=== PATIENT | female | born 1950 | race Caucasian/White ===

== ENCOUNTER 2019-10-31 14:23 | Inpatient (IN) | payer MEDICARE, BC ==
[~2019-10-31] VITALS: Ht 165.1 cm; Wt 82.1 kg
[2019-10-31] MEDS ORDERED: CYAN100096 PO (14:34)
[2019-10-31] MEDS ORDERED: CHOL400T11 PO (14:34)
[2019-10-31] MEDS ORDERED: RISP2TAB23 PO (14:34)
[2019-10-31] MEDS ORDERED: LEVO125T8 PO (14:34)
[2019-10-31] MEDS ORDERED: ASPI-1169 PO (14:34)
[2019-10-31] MEDS ORDERED: HYDR200T81 PO (14:34)
[2019-10-31] MEDS ORDERED: ESCI10TA PO (14:34)
[2019-10-31] MEDS ORDERED: CARV3.12 PO (14:34)
[2019-10-31] MEDS ORDERED: SIMV-49 PO (14:34)
[2019-10-31] MEDS ORDERED: OMEP40CA13 PO (14:34)
[2019-10-31] MEDS ORDERED: FLUD0.1T PO (14:34)
[2019-10-31] MEDS ORDERED: PRED20TA PO (14:34)
[2019-10-31] MEDS ORDERED: APIX5TAB PO (14:34)
--- NOTE | 2019-10-31 14:42 | NUR ---
BIB RA 69 YEAR OLD FEMALE FROM SNF FOR LOW BLOOD PRESSURE. SBP <90. ALERT AND ORIENTED X1, BREATHING EVEN AND UNLABORED WITH NO DISTRESS NOTED. NOTED WITH BLE EDEMA. SKIN WARM TO TOUCH. WAITING TO BE SEEN BY
[2019-10-31] MEDS ORDERED: RISP0.2515 PO (14:46)
--- NOTE | 2019-10-31 14:47 | NUR ---
SUPERVISOR HEAVY EQUIPMENT FOR FACILITY CALLED LEFT HER NUMBER [phone] FOR ANY OTHER QUESTIONS REGARDING PT
--- NOTE | 2019-10-31 14:51 | NUR ---
PT NOTED WITH BM, CLEANED AND CHANGED
[2019-10-31 15:11] LABS: BASOPHILS # (AUTO) 0.1 /CMM (0.0-0.2); BASOPHILS % (AUTO) 0.6 % (0.0-2.0); HEMATOCRIT 32 % (33-45); HEMOGLOBIN 10.3 g/dL (11.5-14.8); LYMPHOCYTES # (AUTO) 0.7 /CMM (0.8-4.8); LYMPHOCYTES % (AUTO) 5.7 % (20.0-44.0); MEAN CORPUSCULAR HGB CONC 32 g/dl (31.0-36.0); MEAN CORPUSCULAR VOLUME 94 fL (82-100); MONOCYTES # (AUTO) 0.6 /CMM (0.1-1.30); MONOCYTES % (AUTO) 4.5 % (2.0-12.0); NEUTROPHILS # (AUTO) 11.5 /CMM (1.8-8.9); NEUTROPHILS % (AUTO) 88.2 % (43.0-81.0); PLATELET COUNT (AUTO) 223 /CMM (150-450); RED BLOOD CELL COUNT(AUTO) 3.42 MIL/uL (4.0-5.2); WHITE BLOOD COUNT (AUTO) 13.1 K/uL (4.3-11.0)
[2019-10-31 15:16] LABS: ABG BASE EXCESS -2.3 mmol/L; ABG OXYGEN SATURATION 91.6 % (92.0-98.5); ABG PCO2 37.4 mmHg (35.0-45.0); ABG PH 7.393 (7.350-7.450); ABG PO2 69.8 mmHg (75.0-100.0); AaDO2 208.5 mmHg; COHb 0.3 % (0.5-1.5); MetHb 0.4 % (0.0-1.5); SITE, ABG Left Radial
--- NOTE | 2019-10-31 15:19 | NUR ---
urine collected sent to lab
[2019-10-31 15:24] LABS: CALCIUM, SERUM 8.3 mg/dL (8.5-10.1); CARBON DIOXIDE 28 mmol/L (21-32); CHLORIDE 108 mmol/L (98-107); CREATININE 1.4 mg/dL (0.6-1.3); GLUCOSE 135 mg/dL (74-106); POTASSIUM 3.6 mmol/L (3.5-5.1); SODIUM SERUM 144 mmol/L (136-145); UREA NITROGEN, BLOOD 21 mg/dL (7-18)
[2019-10-31 15:30] LABS: ALANINE AMINOTRANSFERASE 41 U/L (12-78); ALBUMIN 2.9 g/dL (3.4-5.0); ALKALINE PHOSPHATASE 74 U/L (46-116); ASPARTATE AMINOTRANSFERASE 25 U/L (15-37); BILIRUBIN,DIRECT 0.2 mg/dL (0.0-0.2); BILIRUBIN,TOTAL 0.8 mg/dL (0.2-1.0); TOTAL PROTEIN, SERUM 5.8 g/dL (6.4-8.2)
[2019-10-31 15:38] LABS: APPEARANCE,URINE Slightly Cloudy (CLEAR); BILIRUBIN,URINE SMALL (NEGATIVE); BLOOD, URINE Trace-intact Ery/uL (NEGATIVE); COLOR,URINE Dark (YELLOW); KETONES,URINE Trace (NEGATIVE); LEUKOCYTE ESTERASE ,URINE Small (NEGATIVE); NITRITE, URINE Negative (NEGATIVE); PROTEIN,URINE 100 mg/dl (NEGATIVE); UGLUCOSE Negative (NEGATIVE); UROBILINOGEN,URINE 0.2 EU/dL (0.2)
--- NOTE | 2019-10-31 15:47 | NUR ---
yousuf from lab called lactic acid of pt 2.5 made aware
[2019-10-31 15:54] LABS: WBC,URINE 81-100 /HPF (0-3)
[2019-10-31 15:55] LABS: BACTERIA,URINE Rare /HPF (None Seen); SQUAMOUS EPITHELIAL CELL,UR Few /HPF (None Seen)
[2019-10-31] MEDS ORDERED: PIPERACILLIN /TAZOBACTAM 3.375 G in IV D5W 50 ML IV ONE (16:00)
[2019-10-31] MEDS ORDERED: IV NS 0.9% 1,000 ML BAG IV ONE (16:00)
--- NOTE | 2019-10-31 16:00 | NUR ---
PAGED [facility].
--- NOTE | 2019-10-31 16:12 | NUR ---
CALLED NURSING SUP FOR TELE BED.
[2019-10-31] MEDS ORDERED: VANCOMYCIN 1 GM in IV D5W 250ml IV ONE (16:30)
--- NOTE | 2019-10-31 17:49 | NUR ---
NURSING SUP GAVE TELE BED 114-1.
--- NOTE | 2019-10-31 17:53 | NUR ---
NURSE WILL CALL BACK FOR REPORT
--- NOTE | 2019-10-31 18:12 | NUR ---
RECEIVED A CALL FROM SPANISH INSTRUCTOR-DELMI [phone], STATING PATIENT IS ALLERGIC TO VANCO WITH MILD RASH RESULT. INFO NOT NOTED FROM MEDICAL RECORD PROVIDED UPON TRANSFER. DR. ELDRIDGE MADE AWARE. PRIMARY NURSE AWARE.
--- NOTE | 2019-10-31 18:44 | NUR ---
pt not noted with vanco reaction after administration
--- NOTE | 2019-10-31 18:45 | NUR ---
pt remains stable
[2019-10-31] MEDS ORDERED: FEE PK DOSING 1 MIN EA MC ONE (19:16)
[2019-10-31] MEDS: IV NS 0.9% 1,000 ML IV PRN (19:27)
[2019-10-31] MEDS ORDERED: ONDANSETRON HCL/PF 4 MG/2 ML VIAL IVP PRN (19:30)
--- NOTE | 2019-10-31 19:30 | NUR ---
RN NOTES, RECEIVED PATIENT IN BED AWAKE A/OX 2 ABLE ANSWER SIMPLE QUESTIONS, ON O2 VIA NC AT 2LPM, BREATHING EVEN AND UNLABORED, NO SOB/ACUTE DISTRESS NOTED AT THIS TIE, NSR IN TELE MONITOR WITH HR IN 80S AT THIS TIME, IV ACCESS IN RFA AND RAC PATENT AND INTACT, WILL F/U WITH MD ORDERS, PATIENT ADMITTED FROM ER AT THE END OF THE PRIOR SHIFT, NOTED PATIENT WITH SACRAL/ PERINEAL AND UNDER BREAST FOLDS REDNESS/EXCORIATION, AFEBRILE, UNDER MEDICAL SERVICES OF DR BIANCHI, WILL CONTINUE TO MONITOR CLOSELY.
--- NOTE | 2019-10-31 19:43 | NUR ---
RN NOTES, INFORMED DR BIANCHI THAT LAB REPORTED CRITICAL FOR LACTIC ACID OF 2.3, AND INITIALLY WAS 2.5, 1,710ML OF IV FLUIDS GIVEN IN ER, AND MD REPLIED WITH NO NEW ORDERED AND CONTINUE JUST THE IVF NS @ 75ML/HR HE ALREADY ORDERED, NOTED AND CARRIED OUT.
[2019-10-31 20:00] VITALS: BP 131/56
[2019-10-31] MEDS: PIPERACILLIN /TAZOBACTAM 3.375 G in IV D5W 100 ML IV SCH (20:36)
[2019-10-31] MEDS: SIMVASTATIN 20 MG TABLET PO SCH (21:05)
[2019-10-31] MEDS: risperiDONE 0.25 MG TABLET PO SCH (21:05)
[2019-11-01] VITALS: BP 138/80
[2019-11-01 04:00] VITALS: BP 125/66
[2019-11-01] MEDS: PIPERACILLIN /TAZOBACTAM 3.375 G in IV D5W 100 ML IV SCH ×3 (04:58→21:29)
[2019-11-01 06:47] LABS: BASOPHILS % (AUTO) 0.3 % (0.0-2.0); EOSINOPHILS % (AUTO) 0.6 % (0.0-6.0); HEMATOCRIT 27 % (33-45); HEMOGLOBIN 8.7 g/dL (11.5-14.8); LYMPHOCYTES # (AUTO) 0.9 /CMM (0.8-4.8); LYMPHOCYTES % (AUTO) 5.9 % (20.0-44.0); MEAN CORPUSCULAR HGB CONC 32 g/dl (31.0-36.0); MEAN CORPUSCULAR VOLUME 93 fL (82-100); MONOCYTES % (AUTO) 6.3 % (2.0-12.0); NEUTROPHILS # (AUTO) 13.2 /CMM (1.8-8.9); NEUTROPHILS % (AUTO) 86.9 % (43.0-81.0); PLATELET COUNT (AUTO) 168 /CMM (150-450); RED BLOOD CELL COUNT(AUTO) 2.91 MIL/uL (4.0-5.2); WHITE BLOOD COUNT (AUTO) 15.2 K/uL (4.3-11.0)
--- NOTE | 2019-11-01 06:50 | NUR ---
RN NOTES, NO SIGNIFICANT CHANGE IN CONDITION DURING THE NIGHT, WILL ENDORSED CONTINUITY OF CARE TO ONCOMING NURSE.
[2019-11-01 06:58] LABS: CALCIUM, SERUM 7.1 mg/dL (8.5-10.1); CREATININE 0.9 mg/dL (0.6-1.3); POTASSIUM 3.8 mmol/L (3.5-5.1)
--- NOTE | 2019-11-01 07:15 | NUR ---
ETL INFORMATICA ARCHITECT OPENING NOTES: RECEIVED PT IN BED RESTING, ON 2L/MIN NC. NO RESPIRATORY DISTRESS OR SOB NOTED. BREATHING EVEN AND UNLABORED. HAS VELEZ CATHETER IN PLACE, DRAINING. PT HAS 2 IV ACCESSES ON THE RIGHT FOREARM (INNER AND OUTER) W/ 0.9% NS RUNNING AT 75ML/HR. SAFETY MEASURES IN PLACE, CALL LIGHT W/IN REACH. WILL CONTINUE TO MONITOR.
[2019-11-01] MEDS: LEVOTHYROXINE SODIUM 125 MCG TABLET PO SCH (07:30)
[2019-11-01] MEDS ORDERED: PANTOPRAZOLE 40 MG TABLET.DR PO SCH (07:30)
[2019-11-01 08:00] VITALS: BP 119/57
[2019-11-01] MEDS: ESCITALOPRAM OXALATE (10 MG) 10 MG TABLET PO SCH (09:44)
[2019-11-01] MEDS: FLUDROCORTISONE 0.1 MG TABLET PO SCH (09:44)
[2019-11-01] MEDS: PANTOPRAZOLE 40 MG VIAL IV SCH (09:44)
[2019-11-01] MEDS: CARVEDILOL 3.125 MG TABLET PO SCH ×2 (09:44→17:00)
[2019-11-01] MEDS: ASPIRIN 81 MG TAB.CHEW PO SCH (09:44)
[2019-11-01] MEDS: HYDROXYCHLOROQUINE 200 MG TABLET PO SCH (09:44)
[2019-11-01] MEDS: predniSONE 20 MG TABLET PO SCH (09:44)
[2019-11-01] MEDS: CHOLECALCIFEROL (VITAMIN D 3) 400 UNIT TABLET PO SCH (09:44)
[2019-11-01] MEDS: CYANOCOBALAMIN 500 MCG TABLET PO SCH (09:44)
[2019-11-01] MEDS: APIXABAN 5 MG TABLET PO SCH ×2 (09:53→16:58)
[2019-11-01] MEDS: IV NS 0.9% 1,000 ML IV PRN (09:58)
--- NOTE | 2019-11-01 11:52 | NUR ---
TELE1/RN ROUNDS - DR. BIANCHI UPDATED PT'S CONDITION TOLD MD PT HAS LOW BP 91/60. RECEIVED VERBAL ORDER TO GIVE PT BOLUS NS 250ML. ORDER NOTED AND CARRIED.
[2019-11-01 12:00] VITALS: BP 91/60
[2019-11-01] MEDS ORDERED: IV NS 0.9% 250 ML IV ONE (12:00)
--- NOTE | 2019-11-01 12:38 | NUR ---
WOUND CARE CONSULT: SKIN ASSESSMENT NOT DONE YET BY WOUND CARE NURSE DUE TO PT EATING AT THIS TIME. REVIEWED ADMISSION PHOTOS AND NURSING DOCUMENTATION WHICH SHOW RASHES AND REDNESS TO BREASTFOLDS AND GROIN FOLDS, PRESENT ON ADMISSION. RECOMMENDATIONS MADE FOR SKIN CARE AND PROTECTION. DISCUSSED WITH NURSING STAFF. WILL SEE PT FOR SKIN ASSESSMENT AT LATER TIME. MD IN AGREEMENT WITH PLAN OF CARE. CURRENT RENAN SCORE IS 15.
[2019-11-01 16:00] VITALS: BP 93/59
[2019-11-01] MEDS: CLOTRIMAZOLE 1% 15 GM TUBE TP SCH (16:55)
[2019-11-01] MEDS: VANCOMYCIN 1.25 GM in IV D5W 250 ML IV SCH (17:42)
--- NOTE | 2019-11-01 19:40 | NUR ---
BROACH OPERATOR OPENING NOTES: RECEIVED PT IN BED RESTING, ON 2L/MIN NC. NO RESPIRATORY DISTRESS OR SOB NOTED. BREATHING EVEN AND UNLABORED. HAS VELEZ CATHETER IN PLACE, DRAINING. PT RIGHT FOREARM X2 (INNER AND OUTER) W/ 0.9% NS RUNNING AT 75ML/HR. SAFETY MEASURES IN PLACE, CALL LIGHT W/IN REACH. WILL CONTINUE TO MONITOR.
--- NOTE | 2019-11-01 19:50 | NUR ---
TELE/RN CLOSING NOTES: PT AWAKE IN BED A&O X2-3. NO RESPIRATORY DISTRESS NOTED DURING SHIFT. ON TELE MONITOR W/ SR. ALL MEDICATIONS GIVEN PRESCRIBED. ADMINISTERED NS 250ML BOLUS FOR LOW BP DURING SHIFT. SAFETY MEASURES IN PLACE. CALL LIGHT WITHIN REACH. ENDORSED TO NIGHT RN FOR BUD.
[2019-11-01 20:00] VITALS: BP 100/57
[2019-11-02] VITALS (7 sets, daily range): BP systolic 102–124; BP diastolic 51–65
[2019-11-02] MEDS: risperiDONE 0.25 MG TABLET PO SCH ×2 (00:19→21:06)
[2019-11-02] MEDS: SIMVASTATIN 20 MG TABLET PO SCH ×2 (00:19→21:06)
[2019-11-02] MEDS: PIPERACILLIN /TAZOBACTAM 3.375 G in IV D5W 100 ML IV SCH ×3 (05:16→21:06)
--- NOTE | 2019-11-02 07:05 | NUR ---
FIRE COORDINATOR CLOSING NOTES: PATIENT IN BED RESTING, ON 2L/MIN NC. NO RESPIRATORY DISTRESS OR SOB NOTED. BREATHING EVEN AND UNLABORED. HAS VELEZ CATHETER IN PLACE, DRAINING. PATIENT HAS RIGHT FOREARM X2 (INNER AND OUTER) W/ 0.9% NS RUNNING AT 75ML/HR. SAFETY MEASURES IN PLACE, CALL LIGHT W/IN REACH. WILL ENDORSE THE PATIENT TO AM RN FOR BUD.
[2019-11-02 07:07] LABS: BASOPHILS % (AUTO) 0.4 % (0.0-2.0); EOSINOPHILS % (AUTO) 2.3 % (0.0-6.0); HEMATOCRIT 25 % (33-45); HEMOGLOBIN 8.1 g/dL (11.5-14.8); LYMPHOCYTES # (AUTO) 1.1 /CMM (0.8-4.8); LYMPHOCYTES % (AUTO) 11.5 % (20.0-44.0); MEAN CORPUSCULAR HGB CONC 33 g/dl (31.0-36.0); MEAN CORPUSCULAR VOLUME 94 fL (82-100); MONOCYTES % (AUTO) 10.7 % (2.0-12.0); NEUTROPHILS # (AUTO) 7.3 /CMM (1.8-8.9); NEUTROPHILS % (AUTO) 75.1 % (43.0-81.0); PLATELET COUNT (AUTO) 164 /CMM (150-450); RED BLOOD CELL COUNT(AUTO) 2.66 MIL/uL (4.0-5.2); WHITE BLOOD COUNT (AUTO) 9.7 K/uL (4.3-11.0)
--- NOTE | 2019-11-02 07:10 | NUR ---
RN INITIAL NOTE PATIENT IS ASLEEP, BUT EASILY AROSUABLE TO NAME AND TOUCH. ALERT AND ORIENTED X3. ON TELE MONITOR. HAS A VELEZ DRAINING WELL. HAS A LEFT FA AND RIGHT WITH NS AT 75 ML/HR. NO COMPLAINS OF ANY SOB NOR PAIN AT THIS TIME. BED LOCKED AND IN LOWEST POSITION. CALL LIGHT WITHIN REACH. WILL CONTINUE TO MONITOR
--- NOTE | 2019-11-02 07:35 | NUR ---
WOUND CARE CONSULT: PT SEEN FOR SKIN ASSESSMENT AND NOTED TO HAVE RASH/REDNESS TO BILATERAL BREASTFOLDS AND GROIN FOLDS, PRESENT ON ADMISSION. PT IS INCONTINENT. SOME PEELING SKIN NOTED TO HER BACK. RECOMMENDATIONS MADE FOR SKIN PROTECTION AND SKIN CARE. DISCUSSED WITH NURSING STAFF. WILL SEE PRN. TONEY IN AGREEMENT WITH PLAN OF CARE. Addendum: 11/02/19 at 0736 by RONI GEORGES WNDNU Amended: Links added.
[2019-11-02 07:45] LABS: CALCIUM, SERUM 7.2 mg/dL (8.5-10.1); MAGNESIUM 1.8 mg/dL (1.8-2.4); POTASSIUM 3.5 mmol/L (3.5-5.1)
[2019-11-02] MEDS: LEVOTHYROXINE SODIUM 125 MCG TABLET PO SCH (08:31)
[2019-11-02] MEDS: ESCITALOPRAM OXALATE (10 MG) 10 MG TABLET PO SCH (08:37)
[2019-11-02] MEDS: predniSONE 20 MG TABLET PO SCH (08:38)
[2019-11-02] MEDS: FLUDROCORTISONE 0.1 MG TABLET PO SCH (08:38)
[2019-11-02] MEDS: CARVEDILOL 3.125 MG TABLET PO SCH ×2 (08:38→16:38)
[2019-11-02] MEDS: ASPIRIN 81 MG TAB.CHEW PO SCH (08:38)
[2019-11-02] MEDS: CYANOCOBALAMIN 500 MCG TABLET PO SCH (08:39)
[2019-11-02] MEDS: APIXABAN 5 MG TABLET PO SCH ×2 (08:39→16:36)
[2019-11-02] MEDS: PANTOPRAZOLE 40 MG VIAL IV SCH (08:40)
[2019-11-02] MEDS: CHOLECALCIFEROL (VITAMIN D 3) 400 UNIT TABLET PO SCH (08:40)
[2019-11-02] MEDS: CLOTRIMAZOLE 1% 15 GM TUBE TP SCH ×2 (08:41→16:39)
[2019-11-02] MEDS: HYDROXYCHLOROQUINE 200 MG TABLET PO SCH (08:42)
[2019-11-02] MEDS: VANCOMYCIN 1.25 GM in IV D5W 250 ML IV SCH (16:39)
--- NOTE | 2019-11-02 18:55 | NUR ---
RN CLOSING NOTE PT IN BED, CALL LIGHT WITHIN REACH, ALL MEDS GIVEN, NO C/O OF SOB. WILL ENDORSE TO LANDFILL GRADER.
--- NOTE | 2019-11-02 19:00 | NUR ---
ARCHITECTURAL DESIGNER NOTE RECEIVED PT IN STABLE CONDITION A/O X3, CURRENTLY WATCHING TV. NO SIGNS OF SOB OR DISTRESS, NO C/O PAIN OR N/V. NOTED WITH RAC #18 INTACT WITH IV ATB INFUSING. TELE MONITOR: SR 76. VELEZ IN PLACE WITH CLEAR URINE DRAINING. ALL CURRENT NEEDS ATTENDED TO. BED LOW, LOCKED, UPPER RAILS UP, AND CALL LIGHT WITHIN REACH. WILL CONT. TO MONITOR.
[2019-11-03] VITALS (7 sets, daily range): BP systolic 111–141; BP diastolic 58–76
[2019-11-03] MEDS: PIPERACILLIN /TAZOBACTAM 3.375 G in IV D5W 100 ML IV SCH ×2 (04:14→12:12)
[2019-11-03] MEDS: IV NS 0.9% 1,000 ML IV PRN (04:17)
--- NOTE | 2019-11-03 06:14 | NUR ---
DISTRICT PLANT SUPERVISOR NOTE PT REMAINS IN STABLE CONDITION A/O X3, CURRENTLY RESTING IN BED. NO SIGNS OF SOB OR DISTRESS, NO C/O PAIN OR N/V. NOTED WITH RAC #18 INTACT WITH IV ATB INFUSING. TELE MONITOR: SR 80. VELEZ IN PLACE WITH CLEAR URINE DRAINING. ALL CURRENT NEEDS ATTENDED TO. BED LOW, LOCKED, UPPER RAILS UP, AND CALL LIGHT WITHIN REACH. WILL CONT. TO MONITOR AND ENDORSE TO NEXT SHIFT FOR BUD.
[2019-11-03 06:36] LABS: BASOPHILS # (AUTO) 0.1 /CMM (0.0-0.2); EOSINOPHILS % (AUTO) 2.9 % (0.0-6.0); HEMATOCRIT 25 % (33-45); HEMOGLOBIN 8.2 g/dL (11.5-14.8); MEAN CORPUSCULAR HGB CONC 33 g/dl (31.0-36.0); MEAN CORPUSCULAR VOLUME 93 fL (82-100); MONOCYTES # (AUTO) 0.9 /CMM (0.1-1.30); MONOCYTES % (AUTO) 10.7 % (2.0-12.0); NEUTROPHILS # (AUTO) 5.8 /CMM (1.8-8.9); NEUTROPHILS % (AUTO) 72.4 % (43.0-81.0); PLATELET COUNT (AUTO) 159 /CMM (150-450); RED BLOOD CELL COUNT(AUTO) 2.67 MIL/uL (4.0-5.2)
[2019-11-03 06:45] LABS: CALCIUM, SERUM 8.1 mg/dL (8.5-10.1); CREATININE 0.9 mg/dL (0.6-1.3); POTASSIUM 3.3 mmol/L (3.5-5.1)
--- NOTE | 2019-11-03 08:00 | NUR ---
RN NOTE: PATIENT RECEIVED ALERT AWAKE ORIENTED X 3. ON ROOM AIR, NO BREATHING DISTRESS NOTED. DENIES CHEST PAIN & DISCOMFORT. SAFETY MEASURES OBSERVED. ENCOURAGE PATIENT TO USE CALL LIGHT FOR ASSISTANCE. CALL LIGHT WITH IN REACH. CONTINUE TO MONITOR.
[2019-11-03] MEDS: CHOLECALCIFEROL (VITAMIN D 3) 400 UNIT TABLET PO SCH (09:22)
[2019-11-03] MEDS: CYANOCOBALAMIN 500 MCG TABLET PO SCH (09:22)
[2019-11-03] MEDS: ESCITALOPRAM OXALATE (10 MG) 10 MG TABLET PO SCH (09:22)
[2019-11-03] MEDS: HYDROXYCHLOROQUINE 200 MG TABLET PO SCH (09:23)
[2019-11-03] MEDS: CARVEDILOL 3.125 MG TABLET PO SCH ×2 (09:23→17:18)
[2019-11-03] MEDS: LEVOTHYROXINE SODIUM 125 MCG TABLET PO SCH (09:23)
[2019-11-03] MEDS: PANTOPRAZOLE 40 MG VIAL IV SCH (09:23)
[2019-11-03] MEDS: ASPIRIN 81 MG TAB.CHEW PO SCH (09:23)
[2019-11-03] MEDS: predniSONE 20 MG TABLET PO SCH (09:23)
[2019-11-03] MEDS: FLUDROCORTISONE 0.1 MG TABLET PO SCH (09:23)
[2019-11-03] MEDS: APIXABAN 5 MG TABLET PO SCH ×2 (09:25→17:19)
[2019-11-03] MEDS: CLOTRIMAZOLE 1% 15 GM TUBE TP SCH ×2 (09:26→17:20)
--- NOTE | 2019-11-03 10:00 | NUR ---
RN NOTE; SPOKE WITH DR. BIANCHI AT BEDSIDE, REGARDING VANCOMYCIN ALLERGY DOCUMENTATION & ADMINISTRATION OF VANCOMYCIN. PER DOCTOR, HE IS AWARE. CONTINUE ORDERED/AND MONITOR. WILL REVIEW PATIENT CHART.
[2019-11-03] MEDS ORDERED: VANCOMYCIN 1 GM in IV D5W 250 ML IV SCH (11:00)
[2019-11-03] MEDS ORDERED: POTASSIUM CHLORIDE 20 MEQ TAB.PRT.SR PO SCH (11:30)
[2019-11-03] MEDS ORDERED: POTASSIUM CHLORIDE 10 MEQ TABLET.SA PO ONE (12:30)
[2019-11-03] MEDS: CEFTRIAXONE 1 G in IV D5W 50 ML IV SCH (13:42)
[2019-11-03] MEDS: AZITHROMYCIN 250 MG TABLET PO SCH (13:42)
--- NOTE | 2019-11-03 18:29 | NUR ---
RN NOTES: PATIENT REMAINS ALERT AWAKE ORIENTED. NO SIGNIFICANT CHANGES NOTED DURING SHIFT. CONTINUE WITH ATB THERAPY ORDERED. PLAN TO DISCHARGE TOMORROW PER DR. BIANCHI. CONTINUE WITH PLAN OF CARE.
--- NOTE | 2019-11-03 20:11 | NUR ---
TELE1/RN RECEIVE PATIENT IN BED AWAKE, ORIENTED X1, COMFORTABLE, NO C/O PAIN, NO DISTRESS NOTED, FALL PRECAUTIONS, CALL LIGHT IN REACH. WILL MONITOR.
--- NOTE | 2019-11-03 22:38 | NUR ---
PAU/RN COUGHING NOTED, CALLED DR. BIANCHI, LEFT MESSAGE.
[2019-11-03] MEDS: SIMVASTATIN 20 MG TABLET PO SCH (22:45)
[2019-11-03] MEDS: risperiDONE 0.25 MG TABLET PO SCH (22:46)
--- NOTE | 2019-11-03 23:24 | NUR ---
PAU/RN NO CALL BACK YET FROM DR. BIANCHI. MADE A F/U CALL, LEFT MESSAGE.
[2019-11-04] VITALS (8 sets, daily range): BP systolic 95–158; BP diastolic 54–79
--- NOTE | 2019-11-04 02:21 | NUR ---
MS/RN PATIENT IS SLEEPING AT THIS TIME, APPEAR COMFORTABLE, NO SIGNS OF DISTRESS NOTED, CALL LIGHT IN REACH. WILL CONTINUE TO MONITOR.
--- NOTE | 2019-11-04 06:16 | NUR ---
PAU/RN PATIENT IS STILL SLEEPING AT THIS TIME, APPEAR COMFORTABLE, NO SIGNS OF DISTRESS NOTED, CALL LIGHT IN REACH. ALL NEEDS ATTENDED AT THIS TIME, WILL CONTINUE TO MONITOR.
[2019-11-04] MEDS: LEVOTHYROXINE SODIUM 125 MCG TABLET PO SCH (07:30)
[2019-11-04 07:34] LABS: CALCIUM, SERUM 8.4 mg/dL (8.5-10.1); CREATININE 1.1 mg/dL (0.6-1.3); POTASSIUM 3.3 mmol/L (3.5-5.1)
[2019-11-04] MEDS: PANTOPRAZOLE 40 MG VIAL IV SCH (09:27)
[2019-11-04] MEDS: ASPIRIN 81 MG TAB.CHEW PO SCH (09:27)
[2019-11-04] MEDS: CARVEDILOL 3.125 MG TABLET PO SCH ×2 (09:28→17:00)
[2019-11-04] MEDS: APIXABAN 5 MG TABLET PO SCH ×2 (09:29→17:47)
[2019-11-04] MEDS: FLUDROCORTISONE 0.1 MG TABLET PO SCH (09:29)
[2019-11-04] MEDS: ESCITALOPRAM OXALATE (10 MG) 10 MG TABLET PO SCH (09:29)
[2019-11-04] MEDS: HYDROXYCHLOROQUINE 200 MG TABLET PO SCH (09:29)
[2019-11-04] MEDS: CYANOCOBALAMIN 500 MCG TABLET PO SCH (09:30)
[2019-11-04] MEDS: CHOLECALCIFEROL (VITAMIN D 3) 400 UNIT TABLET PO SCH (09:30)
[2019-11-04] MEDS: predniSONE 20 MG TABLET PO SCH (09:30)
[2019-11-04] MEDS: CLOTRIMAZOLE 1% 15 GM TUBE TP SCH ×2 (09:30→17:51)
[2019-11-04] MEDS: AZITHROMYCIN 250 MG TABLET PO SCH (11:59)
[2019-11-04] MEDS: CEFTRIAXONE 1 G in IV D5W 50 ML IV SCH (11:59)
[2019-11-04] MEDS ORDERED: POTASSIUM CHLORIDE 20 MEQ TAB.PRT.SR PO SCH (12:00)
[2019-11-04] MEDS ORDERED: PROMETHAZINE HCL SYRUP 6.25 MG/5 ML UDC PO SCH (13:30)
[2019-11-04] MEDS: methylPREDNISolone SOD SUCC 40 MG/ML VIAL IV SCH ×2 (14:42→17:46)
--- NOTE | 2019-11-04 14:46 | NUR ---
alert, oriented, appropriate, non-productive cough noticeably , PHENERGAN 5cc po ordered. PT attempted to walk with her, claimed " too tired to walk today"
[2019-11-04] MEDS: PROMETHAZINE HCL SYRUP 6.25 MG/5 ML UDC PO PRN (15:46)
[2019-11-04] MEDS: SIMVASTATIN 20 MG TABLET PO SCH (21:23)
[2019-11-04] MEDS: risperiDONE 0.25 MG TABLET PO SCH (21:23)
[2019-11-05] VITALS (7 sets, daily range): BP systolic 110–141; BP diastolic 58–73
[2019-11-05 07:02] LABS: CALCIUM, SERUM 8.8 mg/dL (8.5-10.1); CREATININE 1.2 mg/dL (0.6-1.3); POTASSIUM 3.9 mmol/L (3.5-5.1)
--- NOTE | 2019-11-05 07:15 | NUR ---
MS RN OPENING NOTE RECEIVED PATIENT IN BED SLEEPING COMFORTABLY. PATIENT IN NO ACUTE DISTRESS. NO SOB NOTED. PATIENT BREATHING IS EVEN AND UNLABORED. IV PATENT AND INTACT. BED ALARM IS ON. SAFETY PRECAUTIONS IN PLACE. PATIENT BED IS LOCKED AND IN LOWEST POSITION. CALL LIGHT WITHIN REACH. WILL CONTINUE TO MONITOR.
[2019-11-05] MEDS: FLUDROCORTISONE 0.1 MG TABLET PO SCH (08:08)
[2019-11-05] MEDS: HYDROXYCHLOROQUINE 200 MG TABLET PO SCH (08:08)
[2019-11-05] MEDS: CLOTRIMAZOLE 1% 15 GM TUBE TP SCH ×2 (08:08→16:35)
[2019-11-05] MEDS: APIXABAN 5 MG TABLET PO SCH ×2 (08:09→16:31)
[2019-11-05] MEDS: CYANOCOBALAMIN 500 MCG TABLET PO SCH (08:10)
[2019-11-05] MEDS: ASPIRIN 81 MG TAB.CHEW PO SCH (08:10)
[2019-11-05] MEDS: predniSONE 20 MG TABLET PO SCH (08:10)
[2019-11-05] MEDS: CHOLECALCIFEROL (VITAMIN D 3) 400 UNIT TABLET PO SCH (08:11)
[2019-11-05] MEDS: CARVEDILOL 3.125 MG TABLET PO SCH ×2 (08:11→16:32)
[2019-11-05] MEDS: LEVOTHYROXINE SODIUM 125 MCG TABLET PO SCH (08:12)
[2019-11-05] MEDS: ESCITALOPRAM OXALATE (10 MG) 10 MG TABLET PO SCH (08:12)
[2019-11-05] MEDS: PROMETHAZINE HCL SYRUP 6.25 MG/5 ML UDC PO PRN (08:13)
[2019-11-05] MEDS: methylPREDNISolone SOD SUCC 40 MG/ML VIAL IV SCH ×3 (08:13→16:32)
[2019-11-05] MEDS: PANTOPRAZOLE 40 MG VIAL IV SCH (08:13)
--- NOTE | 2019-11-05 10:24 | NUR ---
MS RN NOTE WOUND CARE PERFORMED ORDERED.
[2019-11-05] MEDS: AZITHROMYCIN 250 MG TABLET PO SCH (12:27)
[2019-11-05] MEDS: CEFTRIAXONE 1 G in IV D5W 50 ML IV SCH (12:29)
[2019-11-05] MEDS: OSELTAMIVIR PHOSPHATE 75 MG CAPSULE PO SCH (16:32)
[2019-11-05] MEDS: METRONIDAZOLE 500MG/ NS 100ML 500 MG in PREMIX 1 EA IV SCH (16:44)
--- NOTE | 2019-11-05 17:40 | NUR ---
MS RN NOTE RT HORACIO MADE AWARE OF BREATHING TREATMENTS, PER HORACIO HE NOTIFIED RT WHOM HAS THIS PATIENT FOR BREATHING TREATMENTS. PATIENT IN NO ACUTE DISTRESS. PATIENT BREATHING IS EVEN AND UNLABORED.
[2019-11-05] MEDS: CEFEPIME 2 GM in IV D5W 100 ML IV SCH (17:51)
--- NOTE | 2019-11-05 18:20 | NUR ---
MS RN CLOSING NOTE PATIENT IN BED RESTING COMFORTABLY. PATIENT IN NO ACUTE DISTRESS. NO SOB NOTED. PATIENT BREATHING IS EVEN AND UNLABORED. IV PATENT AND INTACT. BED ALARM IS ON. ISOLATION PRECAUTIONS IN PLACE. SAFETY PRECAUTIONS IN PLACE. PATIENT KEPT CLEAN, DRY AND COMFORTABLE THROUGHOUT SHIFT. NEEDS AND CONCERNS ADDRESSED. PATIENT BED IS LOCKED AND IN LOWEST POSITION. CALL LIGHT WITHIN REACH. WILL ENDORSE CARE TO PM SHIFT FOR BUD.
[2019-11-05] MEDS: IPRATROPIUM NEB FS 0.5 MG/2.5 ML AMPUL.NEB NEB SCH (19:25)
[2019-11-05] MEDS: ALBUTEROL FS 2.5 MG/0.5 ML VIAL.NEB NEB SCH (19:25)
--- NOTE | 2019-11-05 19:48 | NUR ---
RN NOTES RECEIVED PATIENT IN BED RESTING COMFORTABLY. NO ACUTE RESPIRATORY DISTRESS. NO SOB NOTED. PATIENT BREATHING IS EVEN AND UNLABORED. IV PATENT AND INTACT. BED ALARM IS ON. ISOLATION PRECAUTIONS MAINTAINED, SAFETY PRECAUTIONS IN PLACE. PATIENT KEPT CLEAN, DRY AND COMFORTABLE, ALL NEEDS ATTENDED, SAFETY MEASURES IN PLACED, PATIENT BED IS LOCKED AND IN LOWEST POSITION. CALL LIGHT WITHIN EASY REACH. WILL CONTINUE TO MONITOR ACCORDINGLY.
[2019-11-05] MEDS: SIMVASTATIN 20 MG TABLET PO SCH (22:12)
[2019-11-05] MEDS: risperiDONE 0.25 MG TABLET PO SCH (22:13)
[2019-11-06] MEDS: METRONIDAZOLE 500MG/ NS 100ML 500 MG in PREMIX 1 EA IV SCH ×4 (00:52→23:40)
[2019-11-06] MEDS: CEFEPIME 2 GM in IV D5W 100 ML IV SCH ×2 (04:08→16:34)
[2019-11-06 05:24] VITALS: BP 132/64
--- NOTE | 2019-11-06 06:26 | NUR ---
RN NOTES ALL NEEDS ATTENDED AND MET, ABLE TO REST AND SLEPT AT INTERVALS, PATIENT IN BED RESTING COMFORTABLY. NO ACUTE RESPIRATORY DISTRESS. NO SOB NOTED. PATIENT BREATHING IS EVEN AND UNLABORED. IV PATENT AND INTACT. BED ALARM IS ON. ISOLATION PRECAUTIONS MAINTAINED, SAFETY PRECAUTIONS IN PLACE. PATIENT KEPT CLEAN, DRY AND COMFORTABLE, ALL NEEDS ATTENDED, SAFETY MEASURES IN PLACED, PATIENT BED IS LOCKED AND IN LOWEST POSITION. CALL LIGHT WITHIN EASY REACH. WILL ENDORSE TO AM NURSE FOR CONTINUITY OF CARE.
[2019-11-06 06:54] LABS: BASOPHILS % (AUTO) 0.1 % (0.0-2.0); HEMATOCRIT 24 % (33-45); HEMOGLOBIN 7.9 g/dL (11.5-14.8); LYMPHOCYTES # (AUTO) 0.4 /CMM (0.8-4.8); LYMPHOCYTES % (AUTO) 7.3 % (20.0-44.0); MEAN CORPUSCULAR HGB CONC 33 g/dl (31.0-36.0); MEAN CORPUSCULAR VOLUME 92 fL (82-100); MONOCYTES # (AUTO) 0.6 /CMM (0.1-1.30); MONOCYTES % (AUTO) 10.3 % (2.0-12.0); NEUTROPHILS # (AUTO) 4.8 /CMM (1.8-8.9); NEUTROPHILS % (AUTO) 82.3 % (43.0-81.0); PLATELET COUNT (AUTO) 205 /CMM (150-450); WHITE BLOOD COUNT (AUTO) 5.9 K/uL (4.3-11.0)
[2019-11-06 07:31] LABS: CALCIUM, SERUM 8.1 mg/dL (8.5-10.1); CREATININE 1.1 mg/dL (0.6-1.3); POTASSIUM 3.6 mmol/L (3.5-5.1)
[2019-11-06] MEDS: ALBUTEROL FS 2.5 MG/0.5 ML VIAL.NEB NEB SCH ×3 (07:35→20:02)
[2019-11-06] MEDS: IPRATROPIUM NEB FS 0.5 MG/2.5 ML AMPUL.NEB NEB SCH ×3 (07:35→20:02)
[2019-11-06 08:00] VITALS: BP 135/67
[2019-11-06] MEDS: PANTOPRAZOLE 40 MG VIAL IV SCH (08:13)
[2019-11-06] MEDS: methylPREDNISolone SOD SUCC 40 MG/ML VIAL IV SCH ×3 (08:13→16:34)
[2019-11-06] MEDS: HYDROXYCHLOROQUINE 200 MG TABLET PO SCH (08:14)
[2019-11-06] MEDS: OSELTAMIVIR PHOSPHATE 75 MG CAPSULE PO SCH ×2 (08:14→16:34)
[2019-11-06] MEDS: ASPIRIN 81 MG TAB.CHEW PO SCH (08:14)
[2019-11-06] MEDS: CYANOCOBALAMIN 500 MCG TABLET PO SCH (08:14)
[2019-11-06] MEDS: CHOLECALCIFEROL (VITAMIN D 3) 400 UNIT TABLET PO SCH (08:14)
[2019-11-06] MEDS: predniSONE 20 MG TABLET PO SCH (08:14)
[2019-11-06] MEDS: CARVEDILOL 3.125 MG TABLET PO SCH ×2 (08:15→16:35)
[2019-11-06] MEDS: LEVOTHYROXINE SODIUM 125 MCG TABLET PO SCH (08:15)
[2019-11-06] MEDS: APIXABAN 5 MG TABLET PO SCH ×2 (08:16→16:39)
[2019-11-06] MEDS: FLUDROCORTISONE 0.1 MG TABLET PO SCH (08:17)
[2019-11-06] MEDS: ESCITALOPRAM OXALATE (10 MG) 10 MG TABLET PO SCH (08:17)
[2019-11-06] MEDS: CLOTRIMAZOLE 1% 15 GM TUBE TP SCH ×2 (08:18→16:42)
--- NOTE | 2019-11-06 09:06 | NUR ---
ALERT, ORIENTED, APPROPRIATE, C/O PAIM ON SARAH BETH, WHERE AV FISTULA PLACEMENT ON 11/04, ON PO [place] 5/325MG GIVEN WITH RELIEF
[2019-11-06 13:00] VITALS: BP 135/67
[2019-11-06 16:00] VITALS: BP 105/57
--- NOTE | 2019-11-06 18:30 | NUR ---
MS RN NOTES PATIENT IN BED, AWAKE, ALERT AND ORIENTED X 2-3. BREATHING EVEN AND UNLABORED ON ROOM AIR. SHOWS NO SIGNS OF ACUTE RESPIRATORY DISTRESS, NO ACUTE PAIN. IV ON R FA 22G SL. SHOWS NO SIGNS OF INFILTRATION, NO REDNESS. ITS CLEAN DRY AND INTACT. VELEZ CATHETER IS INTACT, FLOWING CLEAR YELLOW URINE. SAFETY PRECAUTIONS IN PLACE. BED IN LOWEST POSITION, LOCKED, AND CALL LIGHT KEPT WITHIN REACH. WILL CONTINUE TO MONITOR.
[2019-11-06] MEDS: PROMETHAZINE HCL SYRUP 6.25 MG/5 ML UDC PO PRN (18:46)
[2019-11-06 21:00] VITALS: BP 147/84
[2019-11-06] MEDS: ACETAMINOPHEN 325 MG TABLET PO PRN (21:08)
[2019-11-06] MEDS: SIMVASTATIN 20 MG TABLET PO SCH (21:08)
[2019-11-06] MEDS: risperiDONE 0.25 MG TABLET PO SCH (21:08)
[2019-11-07] MEDS: CEFEPIME 2 GM in IV D5W 100 ML IV SCH ×2 (05:00→16:30)
--- NOTE | 2019-11-07 06:36 | NUR ---
MS RN NOTES PATIENT IN BED, ASLEEP, ALERT AND ORIENTED X 2-3. BREATHING EVEN AND UNLABORED ON ROOM AIR. SHOWS NO SIGNS OF ACUTE RESPIRATORY DISTRESS, NO ACUTE PAIN. IV ON R FA 22G SL. SHOWS NO SIGNS OF INFILTRATION, NO REDNESS. ITS CLEAN DRY AND INTACT. VELEZ CATHETER IS INTACT, FLOWING CLEAR YELLOW URINE. ALL DUE MEDICATIONS GIVEN. SAFETY PRECAUTIONS IN PLACE. BED IN LOWEST POSITION, LOCKED, AND CALL LIGHT KEPT WITHIN REACH. WILL ENDORSE TO ONCOMING NURSE.
--- NOTE | 2019-11-07 07:40 | NUR ---
MS RN NOTES RECEIVED PATIENT IN BED RESTING COMFORTABLY IN MODERATE HIGH BACK REST, ALERT AND ORIENTED X 2-3. NO SIGNS OF DISTRESS NOTED AT THIS TIME. IV ACCESS ON RFA #22, SL. CLEAN DRY,PATENT AND INTACT. VELEZ CATHETER IS INTACT, FLOWING CLEAR YELLOW URINE. SAFETY PRECAUTIONS IN PLACE. BED IN LOWEST POSITION, LOCKED, AND CALL LIGHT KEPT WITHIN REACH. WILL CONTINUE TO MONITOR.
[2019-11-07 07:49] LABS: CALCIUM, SERUM 8.2 mg/dL (8.5-10.1); CREATININE 1.4 mg/dL (0.6-1.3); POTASSIUM 3.5 mmol/L (3.5-5.1)
[2019-11-07] MEDS: IPRATROPIUM NEB FS 0.5 MG/2.5 ML AMPUL.NEB NEB SCH ×3 (07:49→19:48)
[2019-11-07] MEDS: ALBUTEROL FS 2.5 MG/0.5 ML VIAL.NEB NEB SCH ×3 (07:49→19:48)
[2019-11-07] MEDS: METRONIDAZOLE 500MG/ NS 100ML 500 MG in PREMIX 1 EA IV SCH ×2 (07:56→15:31)
[2019-11-07 08:00] VITALS: BP 163/113
[2019-11-07] MEDS: FLUDROCORTISONE 0.1 MG TABLET PO SCH (08:35)
[2019-11-07] MEDS: PANTOPRAZOLE 40 MG VIAL IV SCH (08:35)
[2019-11-07] MEDS: ASPIRIN 81 MG TAB.CHEW PO SCH (08:35)
[2019-11-07] MEDS: CHOLECALCIFEROL (VITAMIN D 3) 400 UNIT TABLET PO SCH (08:35)
[2019-11-07] MEDS: OSELTAMIVIR PHOSPHATE 75 MG CAPSULE PO SCH ×2 (08:36→16:15)
[2019-11-07] MEDS: CYANOCOBALAMIN 500 MCG TABLET PO SCH (08:36)
[2019-11-07] MEDS: ESCITALOPRAM OXALATE (10 MG) 10 MG TABLET PO SCH (08:36)
[2019-11-07] MEDS: methylPREDNISolone SOD SUCC 40 MG/ML VIAL IV SCH ×3 (08:36→16:14)
[2019-11-07] MEDS: LEVOTHYROXINE SODIUM 125 MCG TABLET PO SCH (08:36)
[2019-11-07] MEDS: HYDROXYCHLOROQUINE 200 MG TABLET PO SCH (08:36)
[2019-11-07] MEDS: predniSONE 20 MG TABLET PO SCH (08:37)
[2019-11-07] MEDS: CARVEDILOL 3.125 MG TABLET PO SCH ×2 (08:37→16:17)
[2019-11-07] MEDS: APIXABAN 5 MG TABLET PO SCH ×2 (08:40→16:20)
[2019-11-07] MEDS: CLOTRIMAZOLE 1% 15 GM TUBE TP SCH ×2 (08:58→16:46)
[2019-11-07 09:44] LABS: BASOPHILS % (AUTO) 0.1 % (0.0-2.0); HEMATOCRIT 27 % (33-45); HEMOGLOBIN 8.6 g/dL (11.5-14.8); LYMPHOCYTES # (AUTO) 0.5 /CMM (0.8-4.8); LYMPHOCYTES % (AUTO) 7.3 % (20.0-44.0); MEAN CORPUSCULAR HGB CONC 32 g/dl (31.0-36.0); MEAN CORPUSCULAR VOLUME 92 fL (82-100); MONOCYTES # (AUTO) 0.6 /CMM (0.1-1.30); MONOCYTES % (AUTO) 9.9 % (2.0-12.0); NEUTROPHILS # (AUTO) 5.3 /CMM (1.8-8.9); NEUTROPHILS % (AUTO) 82.7 % (43.0-81.0); PLATELET COUNT (AUTO) 211 /CMM (150-450); RED BLOOD CELL COUNT(AUTO) 2.91 MIL/uL (4.0-5.2); WHITE BLOOD COUNT (AUTO) 6.4 K/uL (4.3-11.0)
[2019-11-07 10:00] VITALS: BP 163/113
[2019-11-07 12:00] VITALS: BP 116/76
[2019-11-07 16:00] VITALS: BP 140/71
--- NOTE | 2019-11-07 18:34 | NUR ---
MS RN NOTES PATIENT IN BED RESTING COMFORTABLY IN MODERATE HIGH BACK REST, ALERT AND ORIENTED X 2-3. NO SIGNS OF DISTRESS NOTED THROUGHOUT THE SHIFT. IV ACCESS ON RFA #22, SL. CLEAN DRY,PATENT AND INTACT. VELEZ CATHETER IS INTACT, FLOWING CLEAR YELLOW URINE. ISOLATION PRECAUTIO MAINTAINED, SAFETY PRECAUTIONS IN PLACE. BED IN LOWEST POSITION, LOCKED, AND CALL LIGHT KEPT WITHIN REACH. WILL ENDORSE TO ALUMINUM BOAT INSPECTOR NURSE FOR BUD.
--- NOTE | 2019-11-07 19:05 | NUR ---
RN MS OPENING NOTES RECEIVED PATIENT IN BED AWAKE ALERT AND ORIENTED X3 RESPIRATIONS EVEN AND UNLABORED WITH EQUAL RISE AND FALL OF CHEST, NOTED WITH NON PRODUCTIVE COUGH AT THIS TIME, VELEZ CATHETER INTACT AND PATENT, DRAINING, SAFETY PRECAUTIONS IN PLACE, ON CONTACT ISOLATION AND RENDERED, IV SITE TO RIGHT FA #22 G INTACT AND PATENT, NO REDNESS, NO INFILTRATION PRESENT, SL.ORIENTED TO STAFF AND CALL LIGHT AND KEPT WITHIN REACH ,LOW BED AND LOCKED, ALL NEEDS ATTENDED AT THIS TIME, DENIES PAIN WILL CONTINUE TO MONITOR.
[2019-11-07 20:00] VITALS: BP 135/78
[2019-11-07 22:00] VITALS: BP 135/78
[2019-11-07] MEDS: SIMVASTATIN 20 MG TABLET PO SCH (22:04)
[2019-11-07] MEDS: risperiDONE 0.25 MG TABLET PO SCH (22:04)
[2019-11-08 04:00] VITALS: BP 149/78
[2019-11-08] MEDS: CEFEPIME 2 GM in IV D5W 100 ML IV SCH ×2 (04:53→17:30)
--- NOTE | 2019-11-08 05:16 | NUR ---
RN MS NOTES PATIENT REFUSED LAB DRAW AT THIS TIME X3 , DESPITE EDUCATION, PER HUMAN RESOURCES DEPARTMENT SUPERVISOR SOMEONE WILL COME BACK TO TRY AGAIN AT A LATER TIME
--- NOTE | 2019-11-08 06:32 | NUR ---
RN MS CLOSING NOTES PATIENT IN BED AWAKE ALERT AND ORIENTED X3 RESPIRATIONS EVEN AND UNLABORED WITH EQUAL RISE AND FALL OF CHEST, NOTED WITH NON PRODUCTIVE COUGH AT THIS TIME, ON 02 2 L VIA NC, VELEZ CATHETER INTACT AND PATENT, DRAINING TEA COLOR, SAFETY PRECAUTIONS IN PLACE, ON CONTACT ISOLATION AND RENDERED, IV SITE TO RIGHT FA #22 G INTACT AND PATENT, NO REDNESS, NO INFILTRATION PRESENT, SL. MEDICATIONS GIVEN ORDERED NO ADVERSE REACTIONS PRESENT.CALL LIGHT KEPT WITHIN REACH ,LOW BED AND LOCKED, ALL NEEDS ATTENDED AT THIS TIME, DENIES PAIN WILL CONTINUE TO MONITOR AND ENDORSE TO NEXT SHIFT.
--- NOTE | 2019-11-08 07:25 | NUR ---
MS RN OPENING NOTES RECEIVED PATIENT RESTING IN BED. A/O X3. RESPIRATIONS ARE EVEN AND UNLABORED, CURRENTLY ON ROOM AIR TOLERATING WELL, SATURATING WELL. PATIENT HAS A VELEZ CATHETER IN PLACE, DRAINING TEA COLORED URINE. DRAINING WELL WITH 1100ML OUTPUT DURING THE NIGHT. PATIENT IS ON A MECHANICAL SOFT DIET BUT IS ABLE TO TAKE PILLS WHOLE. IV ON RIGHT FOREARM #22, INTACT, PATENT, AND FLUSHED WELL. NO SIGNS AND SYMPTOMS OF INFECTION NOTED. SAFETY MAINTAINED, CALL LIGHT WITHIN REACH. WILL CONTINUE TO MONITOR.
[2019-11-08] MEDS: ALBUTEROL FS 2.5 MG/0.5 ML VIAL.NEB NEB SCH ×3 (07:33→20:12)
[2019-11-08] MEDS: IPRATROPIUM NEB FS 0.5 MG/2.5 ML AMPUL.NEB NEB SCH ×3 (07:33→20:12)
--- NOTE | 2019-11-08 07:38 | NUR ---
PT REFUSED MORNING LABS, LAB WILL COME AND TRY AGAIN AT 9AM.
[2019-11-08 08:00] VITALS: BP 153/78
[2019-11-08] MEDS: methylPREDNISolone SOD SUCC 40 MG/ML VIAL IV SCH ×3 (08:37→16:04)
[2019-11-08] MEDS: HYDROXYCHLOROQUINE 200 MG TABLET PO SCH (08:37)
[2019-11-08] MEDS: CYANOCOBALAMIN 500 MCG TABLET PO SCH (08:38)
[2019-11-08] MEDS: ESCITALOPRAM OXALATE (10 MG) 10 MG TABLET PO SCH (08:38)
[2019-11-08] MEDS: ASPIRIN 81 MG TAB.CHEW PO SCH (08:38)
[2019-11-08] MEDS: FLUDROCORTISONE 0.1 MG TABLET PO SCH (08:38)
[2019-11-08] MEDS: LEVOTHYROXINE SODIUM 125 MCG TABLET PO SCH (08:38)
[2019-11-08] MEDS: CHOLECALCIFEROL (VITAMIN D 3) 400 UNIT TABLET PO SCH (08:38)
[2019-11-08] MEDS: CARVEDILOL 3.125 MG TABLET PO SCH ×2 (08:39→16:05)
[2019-11-08] MEDS: OSELTAMIVIR PHOSPHATE 75 MG CAPSULE PO SCH ×2 (08:40→16:05)
[2019-11-08] MEDS: METRONIDAZOLE 500MG/ NS 100ML 500 MG in PREMIX 1 EA IV SCH ×4 (08:40→16:09)
[2019-11-08] MEDS: predniSONE 20 MG TABLET PO SCH (08:40)
[2019-11-08] MEDS: PANTOPRAZOLE 40 MG VIAL IV SCH (08:40)
[2019-11-08] MEDS: APIXABAN 5 MG TABLET PO SCH ×2 (08:42→16:06)
[2019-11-08] MEDS: CLOTRIMAZOLE 1% 15 GM TUBE TP SCH ×2 (09:06→16:21)
[2019-11-08 10:00] VITALS: BP 153/78
[2019-11-08] MEDS: ACETAMINOPHEN 325 MG TABLET PO PRN (11:17)
[2019-11-08 16:00] VITALS: BP 133/73
--- NOTE | 2019-11-08 19:20 | NUR ---
MS/RN NOTES RECEIVED PT. SITTING UP IN BED. PT. IS AWAKE, ALERT AND ORIENTED X3. BREATHING EVEN AND UNLABORED ON 2LPM O2 VIA NC. NO SOB, RESPIRATORY DISTRESS OR COMPLAINTS OF PAIN NOTED AT THIS TIME. PT. WITH RIGHT FOREARM 22 GAUGE IV SALINE LOCK PRESENT, PATENT AND INTACT. PT. WITH VELEZ CATHETER PRESENT, PATENT AND INTACT. SAFETY, ISOLATION AND ASPIRATION PRECAUTIONS IMPLEMENTED AND IN PLACE. BED LOCKED AND IN LOWEST POSITION, SIDE RAILS UP X3, BED ALARM ON, CALL LIGHT WITHIN REACH, WILL CONTINUE TO MONITOR.
--- NOTE | 2019-11-08 19:29 | NUR ---
RETAIL PRODUCT DEMO SPECIALIST CLOSING NOTES PATIENT IN STABLE CONDITION. ALL PATIENT NEEDS MET. PATIENT IS AWAKE IN BED, ACCEPTED LAB BLOOD DRAW, BEING DRAWN RN. VELEZ CATHETER IN PLACE, DRAINING TEA COLORED URINE. IV INTACT, PATENT AND FLUSHED WELL. NO ACUTE CHANGES TO PATIENT CONDITION DURING MY SHIFT. ENDORSED TO WELT DRAWER NURSE TO CONTINUE CARE.
[2019-11-08 20:00] VITALS: BP 157/81
[2019-11-08 20:09] LABS: CALCIUM, SERUM 7.9 mg/dL (8.5-10.1); CREATININE 1.2 mg/dL (0.6-1.3); POTASSIUM 3.6 mmol/L (3.5-5.1)
[2019-11-08] MEDS: risperiDONE 0.25 MG TABLET PO SCH (21:59)
[2019-11-08] MEDS: SIMVASTATIN 20 MG TABLET PO SCH (21:59)
[2019-11-09] MEDS: METRONIDAZOLE 500MG/ NS 100ML 500 MG in PREMIX 1 EA IV SCH ×2 (00:39→08:51)
[2019-11-09 04:00] VITALS: BP 148/83
[2019-11-09] MEDS: CEFEPIME 2 GM in IV D5W 100 ML IV SCH ×2 (04:59→16:49)
--- NOTE | 2019-11-09 06:40 | NUR ---
MS/RN NOTES PT. IS LYING IN BED RESTING. BREATHING EVEN AND UNLABORED ON 2LPM O2 VIA NC. NO SOB, RESPIRATORY DISTRESS OR COMPLAINTS OF PAIN NOTED AT THIS TIME. PT. WITH RIGHT FOREARM 22 GAUGE IV SALINE LOCK PRESENT, PATENT AND INTACT. PT. WITH VELEZ CATHETER PRESENT, PATENT AND INTACT. SAFETY, ISOLATION AND ASPIRATION PRECAUTIONS IMPLEMENTED AND IN PLACE. ALL PT. NEEDS MET. PT. OFFLOADED, TURNED AND REPOSITIONED Q2H AND NEEDED. BED LOCKED AND IN LOWEST POSITION, SIDE RAILS UP X3, BED ALARM ON, CALL LIGHT WITHIN REACH, WILL ENDORSE TO DAYSHIFT NURSE FOR CONTINUITY OF CARE.
[2019-11-09] MEDS: IPRATROPIUM NEB FS 0.5 MG/2.5 ML AMPUL.NEB NEB SCH ×3 (07:17→20:05)
[2019-11-09] MEDS: ALBUTEROL FS 2.5 MG/0.5 ML VIAL.NEB NEB SCH ×3 (07:17→20:06)
--- NOTE | 2019-11-09 07:30 | NUR ---
RN OPENING NOTES PT. IS LYING IN BED RESTING. BREATHING EVEN AND UNLABORED ON 2LPM O2 VIA NC. NO SOB, RESPIRATORY DISTRESS OR COMPLAINTS OF PAIN NOTED AT THIS TIME. PT. WITH RIGHT FOREARM 22 GAUGE IV SALINE LOCK PRESENT, PATENT AND INTACT. PT. WITH VELEZ CATHETER PRESENT, PATENT AND DRAINING TO GRAVITY. SAFETY, ISOLATION AND ASPIRATION PRECAUTIONS IMPLEMENTED AND IN PLACE.HOB ELEVATED. BED LOCKED AND IN LOWEST POSITION, SIDE RAILS UP X3, BED ALARM ON, CALL LIGHT WITHIN REACH, WILL CONTINUE TO MONITOR.
[2019-11-09 08:00] VITALS: BP 160/88
--- NOTE | 2019-11-09 08:20 | NUR ---
PT ROLLED OVER IN BED AND REMOVED IV IN R FOREARM. PT WANTS TO GO WITH PHYSICAL THERAPY PRIOR TO REINSERTING IV.
[2019-11-09] MEDS: PANTOPRAZOLE 40 MG VIAL IV SCH (08:51)
[2019-11-09] MEDS: predniSONE 20 MG TABLET PO SCH (08:51)
[2019-11-09] MEDS: LEVOTHYROXINE SODIUM 125 MCG TABLET PO SCH (08:51)
[2019-11-09] MEDS: CYANOCOBALAMIN 500 MCG TABLET PO SCH (08:51)
[2019-11-09] MEDS: methylPREDNISolone SOD SUCC 40 MG/ML VIAL IV SCH ×3 (08:51→16:51)
[2019-11-09] MEDS: FLUDROCORTISONE 0.1 MG TABLET PO SCH (08:52)
[2019-11-09] MEDS: ASPIRIN 81 MG TAB.CHEW PO SCH (08:52)
[2019-11-09] MEDS: ESCITALOPRAM OXALATE (10 MG) 10 MG TABLET PO SCH (08:52)
[2019-11-09] MEDS: CHOLECALCIFEROL (VITAMIN D 3) 400 UNIT TABLET PO SCH (08:52)
[2019-11-09] MEDS: HYDROXYCHLOROQUINE 200 MG TABLET PO SCH (08:52)
[2019-11-09] MEDS: CARVEDILOL 3.125 MG TABLET PO SCH ×2 (08:53→16:51)
[2019-11-09] MEDS: APIXABAN 5 MG TABLET PO SCH ×2 (08:54→16:50)
[2019-11-09] MEDS: OSELTAMIVIR PHOSPHATE 75 MG CAPSULE PO SCH ×2 (08:54→16:50)
[2019-11-09] MEDS: CLOTRIMAZOLE 1% 15 GM TUBE TP SCH ×2 (08:55→16:52)
--- NOTE | 2019-11-09 10:00 | NUR ---
NEW IV INSERTED 22 GAUGE R HAND
--- NOTE | 2019-11-09 14:06 | NUR ---
REPORT GIVEN TO BRENDAN DEGROOT FOR BUD.
--- NOTE | 2019-11-09 14:15 | NUR ---
RN OPENING NOTES RECEIVED PATIENT FROM BRENDAN ARCE TO CONTINUE CARE. PATIENT IN STABLE CONDITION, NO ACUTE CHANGES SINCE MORNING. NEW IV WAS PLACED, INTACT PATENT AND FLUSHED WELL. ALL SCHEDULED MEDICATIONS WERE ALREADY ADMINISTERED, NEXT MED DUE AT 1700. PATIENT SAFETY IS MAINTAINED, CALL LIGHT WITHIN REACH, WILL CONTINUE TO MONITOR.
[2019-11-09 16:00] VITALS: BP 166/89
[2019-11-09] MEDS: METRONIDAZOLE 500 MG TABLET PO SCH (16:50)
[2019-11-09] MEDS ORDERED: INFLUENZA VACCINE 2019-20 0.5 ML DISP.SYRIN IM ONE (18:30)
--- NOTE | 2019-11-09 18:59 | NUR ---
RN CLOSING NOTES PATIENT IN STABLE CONDITION. NO ACUTE CHANGES TO PATIENT CONDITION DURING MY SHIFT. DID AN INFLUENZA ASSESSMENT ON PATIENT PER PHARMACY REQUEST, WILL ADMINISTER INFLUENZA VACCINE BEFORE DISCHARGE. ENDORSED TO REHABILITATION TECH NURSE THAT THE PATIENT WANTS TO RECEIVE BOTH THE PNEUMONIA AND INFLUENZA VACCINE. DISCHARGE ORDERS ARE IN, PATIENT WILL BE GOING HOME TOMORROW. SAFETY MAINTAINED, CALL LIGHT WITHIN REACH, WILL ENDORSE TO REHABILITATION TECH NURSE TO CONTINUE MONITORING.
--- NOTE | 2019-11-09 19:20 | NUR ---
RN OPENING NOTES: PATIENT IN BED, AWAKE, AND VERBALLY RESPONSIVE. NO RESPIRATORY DISTRESS. ON O2 AT 2 LPM VIA NC, TOLERATING WELL. NO C/O PAIN AT THIS TIME. (R) HAND G22 C/D/I. FLUSHING WELL. ON TKO. SAFETY PRECAUTIONS IMPLEMENTED. SIDE RAILS X 2 UP. BED LOCKED, ALARM ON, AND IN LOW POSITION. HOB ELEVATED. CALL LIGHT PLACED WITHIN REACH. WILL CONT. TO MONITOR.
[2019-11-09 20:00] VITALS: BP 158/82
[2019-11-09] MEDS: SIMVASTATIN 20 MG TABLET PO SCH (22:02)
[2019-11-09] MEDS: risperiDONE 0.25 MG TABLET PO SCH (22:02)
[2019-11-10] MEDS: METRONIDAZOLE 500 MG TABLET PO SCH ×3 (01:45→16:24)
[2019-11-10 04:00] VITALS: BP 145/91
[2019-11-10] MEDS: CEFEPIME 2 GM in IV D5W 100 ML IV SCH ×2 (04:24→16:21)
--- NOTE | 2019-11-10 07:15 | NUR ---
RN CLOSING NOTES: PATIENT IN BED, ASLEEP, BUT EASILY AROUSABLE. NO RESPIRATORY DISTRESS. ON O2 AT 2 LPM VIA NC, TOLERATING WELL. NO C/O PAIN AT THIS TIME. REMAINS ON DROPLET PRECAUTION. (R) HAND G22 C/D/I. FLUSHING WELL. SAFETY PRECAUTIONS IMPLEMENTED. SIDE RAILS X 2 UP. BED LOCKED, ALARM ON, AND IN LOW POSITION. HOB ELEVATED. CALL LIGHT PLACED WITHIN REACH. PATIENT TO BE DISCHARGED TODAY ORDERED BY MD. ENDORSED TO AM SHIFT NURSE FOR CONTINUITY OF CARE.
--- NOTE | 2019-11-10 07:30 | NUR ---
RN MS NOTES PT IN BED, AWAKE, ALERT AND ORIENTED, NO COMPLAINT OF PAIN OR SHORTNESS OF BREATH, CALL LIGHT WITHIN REACH, TOLERATING CURRENT DIET, KEPT WARM AND COMFORTABLE IN BED, ISOLATION PRECAUTIONS OBSERVED.
[2019-11-10] MEDS: IPRATROPIUM NEB FS 0.5 MG/2.5 ML AMPUL.NEB NEB SCH ×2 (07:35→13:30)
[2019-11-10] MEDS: ALBUTEROL FS 2.5 MG/0.5 ML VIAL.NEB NEB SCH ×2 (07:35→13:30)
[2019-11-10 08:00] VITALS: BP 173/84
[2019-11-10] MEDS: PANTOPRAZOLE 40 MG VIAL IV SCH (08:37)
[2019-11-10] MEDS: CHOLECALCIFEROL (VITAMIN D 3) 400 UNIT TABLET PO SCH (08:37)
[2019-11-10] MEDS: LEVOTHYROXINE SODIUM 125 MCG TABLET PO SCH (08:37)
[2019-11-10] MEDS: methylPREDNISolone SOD SUCC 40 MG/ML VIAL IV SCH ×3 (08:37→16:24)
[2019-11-10] MEDS: predniSONE 20 MG TABLET PO SCH (08:38)
[2019-11-10] MEDS: OSELTAMIVIR PHOSPHATE 75 MG CAPSULE PO SCH ×2 (08:38→16:24)
[2019-11-10] MEDS: CARVEDILOL 3.125 MG TABLET PO SCH ×2 (08:38→16:28)
[2019-11-10] MEDS: ESCITALOPRAM OXALATE (10 MG) 10 MG TABLET PO SCH (08:38)
[2019-11-10] MEDS: CYANOCOBALAMIN 500 MCG TABLET PO SCH (08:38)
[2019-11-10] MEDS: FLUDROCORTISONE 0.1 MG TABLET PO SCH (08:38)
[2019-11-10] MEDS: ASPIRIN 81 MG TAB.CHEW PO SCH (08:39)
[2019-11-10] MEDS: HYDROXYCHLOROQUINE 200 MG TABLET PO SCH (08:41)
[2019-11-10] MEDS: APIXABAN 5 MG TABLET PO SCH ×2 (08:41→16:25)
[2019-11-10] MEDS: CLOTRIMAZOLE 1% 15 GM TUBE TP SCH ×2 (08:53→16:29)
[2019-11-10 12:00] VITALS: BP 133/67
--- NOTE | 2019-11-10 13:00 | NUR ---
RN MS NOTES PT IN BED, AWAKE, ALERT AND ORIENTED, DENIES PAIN, NO SOB, PLAN FOR DISCHARGE TODAY, PT INFORMED, AWAITING BALE TIE MACHINE OPERATOR CONFIRMATION OF D/C PLAN, DUE MEDS GIVEN ORDERED, NEEDS ATTENDED.
[2019-11-10 16:28] VITALS: BP 158/95
--- NOTE | 2019-11-10 18:45 | NUR ---
RN MS NOTES PT IN BED, AWAKE, ALERT AND ORIENTED, DENIES PAIN, NOT IN DISTRESS, DISCHARGE ORDER GIVEN BY DR. BIANCHI, PT AND FAMILY INFORMED, PT TO GO BACK TO [facility]ARE, ADMINSTRATOR KIMBERLY INFORMED, SKIN CHECK DONE, BELONGINGS ACCOUNTED FOR, FLU VACCINE GIVEN ORDERED, TOLERATED WELL, PICKED UP BY 2 AMBULANCE PERSONNEL, LEFT VIA GUERNEY IN STABLE CONDITION.
== END 2019-11-10 18:40 | disposition home or self-care (01) | DRG 871 ==
LOC: ER 14:28 → TELE1 17:50 → MEDSG1 11-04 08:26
PROVIDERS: ADMIT Internal Medicine; ATTEND Legal Medicine
DX: A41.9 Sepsis, unspecified organism (principal); N17.0 Acute kidney failure with tubular necrosis; J69.0 Pneumonitis due to inhalation of food and vomit; J10.08 Influenza due to other identified influenza virus with other specified pneumonia; G92 Toxic encephalopathy; E87.2 Acidosis; N39.0 Urinary tract infection, site not specified; E27.40 Unspecified adrenocortical insufficiency; J44.1 Chronic obstructive pulmonary disease with (acute) exacerbation; J44.0 Chronic obstructive pulmonary disease with (acute) lower respiratory infection; E03.9 Hypothyroidism, unspecified; E78.5 Hyperlipidemia, unspecified; F03.90 Unspecified dementia, unspecified severity, without behavioral disturbance, psychotic disturbance, mood disturbance, and anxiety; Z79.01 Long term (current) use of anticoagulants; Z99.81 Dependence on supplemental oxygen; E87.6 Hypokalemia; Z86.711 Personal history of pulmonary embolism; F32.9 Major depressive disorder, single episode, unspecified; E86.1 Hypovolemia; I50.9 Heart failure, unspecified; I11.0 Hypertensive heart disease with heart failure; Z79.82 Long term (current) use of aspirin; M32.9 Systemic lupus erythematosus, unspecified
CPT/HCPCS: 36415; 36600; 71045-TC; 80048-TC; 80076-TC; 80202-TC; 81000-TC; 83605-TC; 83735-TC; 84484-TC; 85025-TC; 85730-TC; 87040-TC; 87081-TC; 87086-TC; 94760-TC; 97110-TC; 97112-TC; 97116-TC; 97530-TC; A4216; C9113; G0378; J0692; J0696; J2543; J2920; J3370; J3490; J7030; J7040; J7050; J7060; Q0169; Q2036

== ENCOUNTER 2019-12-06 10:27 | Inpatient (IN) | payer MEDICARE, BC ==
[~2019-12-06] VITALS: Ht 165.1 cm; Wt 74.8 kg
[~2019-12-06 10:27] MED LIST: APIX5TAB PO; ASPI-1169 PO; CARV3.12 PO; CHOL400T11 PO; CYAN100096 PO; ESCI10TA PO; FLUD0.1T PO; HYDR200T81 PO; LEVO125T8 PO; OMEP40CA13 PO; PRED20TA PO; RISP0.2515 PO; SIMV-49 PO
--- NOTE | 2019-12-06 10:40 | NUR ---
NAHED BISHOP 89 From [facility] facility "she was eating-sudden decline in mentation was appropriate when we arrived. Hypotensive [id number]". On 02 @ 2lpm via NC. connected to the monitor and pulse ox. kept comfortable, willl continue to monitor accordingly.
[2019-12-06] MEDS ORDERED: ONDANSETRON HCL/PF 4 MG/2 ML VIAL IVP ONE (11:00)
[2019-12-06] MEDS ORDERED: methylPREDNISolone SOD SUCC 125 MG/2ML VIAL IV ONE (11:00)
[2019-12-06] MEDS ORDERED: IV NS 0.9% 1,000 ML BAG IV ONE ×2 (11:00)
[2019-12-06] MEDS ORDERED: methylPREDNISolone SOD SUCC 125 MG/2ML VIAL ONE (11:03)
[2019-12-06] MEDS ORDERED: ONDANSETRON HCL/PF 4 MG/2 ML VIAL ONE (11:03)
[2019-12-06] MEDS ORDERED: NITR100C PO (11:12)
[2019-12-06] MEDS ORDERED: MIRT15TA PO (11:12)
[2019-12-06] MEDS ORDERED: SIMV40TA2 PO (11:12)
[2019-12-06] MEDS ORDERED: BUPR150T5 PO (11:12)
[2019-12-06 11:31] LABS: BASOPHILS # (AUTO) 0.1 /CMM (0.0-0.2); BASOPHILS % (AUTO) 0.5 % (0.0-2.0); HEMATOCRIT 37 % (33-45); HEMOGLOBIN 11.5 g/dL (11.5-14.8); LYMPHOCYTES # (AUTO) 2.1 /CMM (0.8-4.8); LYMPHOCYTES % (AUTO) 18.2 % (20.0-44.0); MEAN CORPUSCULAR HGB CONC 31 g/dl (31.0-36.0); MEAN CORPUSCULAR VOLUME 94 fL (82-100); MONOCYTES # (AUTO) 1.1 /CMM (0.1-1.30); MONOCYTES % (AUTO) 9.8 % (2.0-12.0); NEUTROPHILS % (AUTO) 70.5 % (43.0-81.0); PLATELET COUNT (AUTO) 240 /CMM (150-450); RED BLOOD CELL COUNT(AUTO) 3.94 MIL/uL (4.0-5.2); WHITE BLOOD COUNT (AUTO) 11.4 K/uL (4.3-11.0)
[2019-12-06 11:40] LABS: CALCIUM, SERUM 8.4 mg/dL (8.5-10.1); CARBON DIOXIDE 25 mmol/L (21-32); CHLORIDE 110 mmol/L (98-107); CREATININE 1.4 mg/dL (0.6-1.3); GLUCOSE 100 mg/dL (74-106); POTASSIUM 3.3 mmol/L (3.5-5.1); SODIUM SERUM 144 mmol/L (136-145); UREA NITROGEN, BLOOD 18 mg/dL (7-18)
[2019-12-06 11:51] LABS: APPEARANCE,URINE SL CLOUDY (CLEAR); BILIRUBIN,URINE NEGATIVE (NEGATIVE); BLOOD, URINE NEGATIVE Ery/uL (NEGATIVE); COLOR,URINE YELLOW (YELLOW); KETONES,URINE NEGATIVE (NEGATIVE); LEUKOCYTE ESTERASE ,URINE SMALL (NEGATIVE); NITRITE, URINE NEGATIVE (NEGATIVE); PROTEIN,URINE TRACE mg/dl (NEGATIVE); UGLUCOSE NEGATIVE (NEGATIVE); UROBILINOGEN,URINE 0.2 EU/dL (0.2)
--- NOTE | 2019-12-06 11:52 | NUR ---
wheeled patient via gurney to ct
[2019-12-06 11:55] LABS: SERUM AMMONIA < 10 umol/L (11-32)
[2019-12-06 11:56] LABS: BACTERIA,URINE None seen /HPF (None Seen); RBC,URINE 0-2 /HPF (0-2); SQUAMOUS EPITHELIAL CELL,UR Many /HPF (None Seen)
[2019-12-06 11:58] LABS: ALANINE AMINOTRANSFERASE 24 U/L (12-78); ALBUMIN 2.7 g/dL (3.4-5.0); ALCOHOL, BLOOD < 3 mg/dL (0-0); ALKALINE PHOSPHATASE 49 U/L (46-116); ASPARTATE AMINOTRANSFERASE 18 U/L (15-37); BILIRUBIN,DIRECT 0.2 mg/dL (0.0-0.2); BILIRUBIN,TOTAL 0.8 mg/dL (0.2-1.0); TOTAL PROTEIN, SERUM 5.9 g/dL (6.4-8.2)
--- NOTE | 2019-12-06 11:58 | NUR ---
DR. MEDINA SPOKE WITH DR. BIANCHI, AND ACCEPTED.
[2019-12-06 11:59] LABS: THYROID STIMULATING HORMONE 5.015 uIU/mL (0.358-3.74)
--- NOTE | 2019-12-06 12:18 | NUR ---
patient came back from ct
[2019-12-06] MEDS ORDERED: ACETAMINOPHEN 325 MG TABLET PO PRN (12:30)
[2019-12-06] MEDS ORDERED: HYDROCODONE/APAP 5/325MG 1 EACH TABLET PO PRN (12:30)
[2019-12-06] MEDS ORDERED: MAG HYDROX/AL HYDROX/SIMETH 30 ML UDC PO PRN (12:30)
[2019-12-06] MEDS ORDERED: CHOLECALCIFEROL (VITAMIN D 3) 400 UNIT TABLET PO SCH (12:30)
[2019-12-06] MEDS ORDERED: ONDANSETRON HCL/PF 4 MG/2 ML VIAL IVP PRN (12:30)
[2019-12-06] MEDS ORDERED: HYDROCODONE/APAP 10/325MG 1 EA TABLET PO PRN (12:30)
[2019-12-06] MEDS ORDERED: ZOLPIDEM TARTRATE 5 MG TABLET PO PRN (12:30)
[2019-12-06] MEDS ORDERED: MAGNESIUM HYDROXIDE 30 ML UDC PO PRN (12:30)
[2019-12-06] MEDS ORDERED: Z GUARD REMEDY 2 OZ OINT TP PRN (12:30)
--- NOTE | 2019-12-06 12:56 | NUR ---
report given to Jaspreet CARDONA for silvio.
--- NOTE | 2019-12-06 14:00 | NUR ---
wheeled patient via gurney accompanied by RN and EMT in no distress. Jaspreet RN at bedside to assume care.
--- NOTE | 2019-12-06 14:23 | NUR ---
PAU RN Notes Received patient in bed from emergency department. VSS. Patient refused skin assessment and pictures. Offered to have a female RN do wound and skin photos, and client refused. Patient is alert and oriented x3. Admitted for syncope episode. Per career developer at bedside Sumit, BP was low 60/40 at board and care facility she was staying at. Per report from ED 500mL bolus given at scene by EMS for BP of 97/53. Caregiver reported PMH of HLD, HTN, Depression, Pneumonia 2/2 to infulenza infection, hypothyroidism, lupus, DVT, bipolar disorder, and a PMH of alcoholism and confabulation syndrome. Lung sounds are clear with 02 at 97 on 4L nasal canula, RR 14. oracle solutions architect is SR 80s. Voids and uses a diaper. No musculoskeletal issues brought up on assessment. Integ is intact except for mild blanchable sacral redness and redness of the skin folds in groin.
[2019-12-06 16:00] VITALS: BP 148/67
[2019-12-06] MEDS: APIXABAN 5 MG TABLET PO SCH (19:01)
[2019-12-06] MEDS: buPROPion SR 150 MG TABLET.ER PO SCH (19:02)
[2019-12-06] MEDS: CARVEDILOL 3.125 MG TABLET PO SCH (19:03)
[2019-12-06] MEDS: DOCUSATE SODIUM 100 MG CAPSULE PO SCH (19:04)
--- NOTE | 2019-12-06 19:20 | NUR ---
PAU RN OPENING NOTE RECEIVED PATIENT IN BED, WATCHING TV. BREATHING EVEN AND NON LABORED. ABLE TO MAKE NEEDS KNOWN. A&O X3. IN NO APPARENT DISTRESS NOTED. NOTED DISCOLORATIONS ON BILATERAL ARMS AND LEGS. PER AM SHIFT RN, DISCOLORATIONS ARE PRESENT UPON ADMISSION BUT PATIENT REFUSED TO HAVE PHOTOS TAKEN. WILL CONTINUE TO MONITOR.
[2019-12-06 20:00] VITALS: BP 130/82
--- NOTE | 2019-12-06 20:01 | NUR ---
PAU RN Closing Notes Patient care handed off to retail shift supervisor. Patient admitted from ED at approximately 13:42. VSS. Patient refused skin assessment and pictures. Offered to have a female RN do wound and skin photos, and client refused. Patient is alert and oriented x3. Admitted for syncope episode. Per health care social worker at bedside Sumit, BP was low 60/40 at board and care facility she was staying at. Per report from ED 500mL bolus given at scene by EMS for BP of 97/53. Caregiver reported PMH of HLD, HTN, Depression, Pneumonia 2/2 to infulenza infection, hypothyroidism, lupus, DVT, bipolar disorder, and a PMH of alcoholism and confabulation syndrome. Lung sounds are clear with 02 at 97 on 4L nasal canula, RR 14. media monitor is SR 80s. Voids and uses a diaper. No musculoskeletal issues brought up on assessment. Integ is intact except for mild blanchable sacral redness and redness of the skin folds in groin. Medications administered and given. Bed in lowest position, call light within reach, all measures taken to ensure client safety.
[2019-12-06] MEDS: IV D5/0.45 NACL 1,000 ML IV PRN (20:25)
[2019-12-06] MEDS: MIRTAZAPINE 15 MG TABLET PO SCH (21:38)
[2019-12-06] MEDS: SIMVASTATIN 20 MG TABLET PO SCH (21:39)
[2019-12-06] MEDS: risperiDONE 0.25 MG TABLET PO SCH (21:39)
[2019-12-07] VITALS (8 sets, daily range): BP systolic 86–152; BP diastolic 56–91
[2019-12-07 06:26] LABS: HEMATOCRIT 31 % (33-45); HEMOGLOBIN 10.2 g/dL (11.5-14.8); LYMPHOCYTES # (AUTO) 0.7 /CMM (0.8-4.8); LYMPHOCYTES % (AUTO) 5.5 % (20.0-44.0); MEAN CORPUSCULAR HGB CONC 33 g/dl (31.0-36.0); MEAN CORPUSCULAR VOLUME 91 fL (82-100); MONOCYTES # (AUTO) 0.4 /CMM (0.1-1.30); NEUTROPHILS # (AUTO) 11.1 /CMM (1.8-8.9); NEUTROPHILS % (AUTO) 91.5 % (43.0-81.0); PLATELET COUNT (AUTO) 254 /CMM (150-450); RED BLOOD CELL COUNT(AUTO) 3.43 MIL/uL (4.0-5.2); WHITE BLOOD COUNT (AUTO) 12.1 K/uL (4.3-11.0)
[2019-12-07 06:33] LABS: CALCIUM, SERUM 8.2 mg/dL (8.5-10.1); MAGNESIUM 1.9 mg/dL (1.8-2.4); PHOSPHORUS 2.3 mg/dL (2.5-4.9); POTASSIUM 3.9 mmol/L (3.5-5.1)
--- NOTE | 2019-12-07 07:48 | NUR ---
PAU RN CLOSING NOTE PATIENT REMAINED STABLE THROUGHOUT THE NIGHT. NO SIGNIFICANT CHANGES NOTED. ENDORSED TO AM SHIFT RN FOR CONTINUATION OF CARE.
[2019-12-07] MEDS: CARVEDILOL 3.125 MG TABLET PO SCH ×2 (08:38→17:00)
[2019-12-07] MEDS: HYDROXYCHLOROQUINE 200 MG TABLET PO SCH (08:38)
[2019-12-07] MEDS: LEVOTHYROXINE SODIUM 125 MCG TABLET PO SCH (08:38)
[2019-12-07] MEDS: DOCUSATE SODIUM 100 MG CAPSULE PO SCH ×2 (08:38→16:58)
[2019-12-07] MEDS: predniSONE 20 MG TABLET PO SCH (08:38)
[2019-12-07] MEDS: ASPIRIN 81 MG TAB.CHEW PO SCH (08:38)
[2019-12-07] MEDS: buPROPion SR 150 MG TABLET.ER PO SCH ×2 (08:39→16:58)
[2019-12-07] MEDS: APIXABAN 5 MG TABLET PO SCH ×2 (08:39→17:03)
[2019-12-07] MEDS: PANTOPRAZOLE 40 MG TABLET.DR PO SCH (08:39)
[2019-12-07] MEDS: FLUDROCORTISONE 0.1 MG TABLET PO SCH (08:39)
[2019-12-07 09:04] LABS: THYROID STIMULATING HORMONE 0.429 uIU/mL (0.358-3.74)
[2019-12-07] MEDS: IV D5/0.45 NACL 1,000 ML IV PRN ×2 (10:30→22:51)
[2019-12-07] MEDS ORDERED: K PHOS NEUTRAL 250 MG TABLET PO ONE (12:15)
--- NOTE | 2019-12-07 13:00 | NUR ---
RN NOTE REPORT GIVEN TO BRENDAN WANG FOR BUD.
--- NOTE | 2019-12-07 13:09 | NUR ---
RN MS NOTES RECEIVED PT FROM MOLINA CARDONA, PT IS IN BED, AWAKE, ALERT AND ORIENTED, NO COMPLAINT OF PAIN OR ANY DISCOMFORT, CALL LIGHT WITHIN REACH, IV FLUIDS INFUSING WELL,KEPT WARM AND COMFORTABLE IN BED.
[2019-12-07] MEDS: NITROFURANTOIN MACROCRYSTAL 100 MG CAPSULE PO SCH (16:59)
--- NOTE | 2019-12-07 18:14 | NUR ---
RN MS NOTES PT IN BED, AWAKE, ALERT AND ORIENTED, NO COMPLAINT OF PAIN OR ANY DISCOMFORT, IV FLUIDS INFUSING WELL, CALL LIGHT WITHIN REACH, PM MEDS GIVEN, TOLERATES CURRENT DIET, ALL NEEDS ATTENDED.
--- NOTE | 2019-12-07 19:00 | NUR ---
MS RN NOTE RECEIVED PT IN STABLE CONDITION A/O X3, NO SIGNS OF SOB OR DISTRESS, NO C/O PAIN OR N/V. IV IN L FA#[address] WITH IVF INFUSING. ALL CURRENT NEEDS ATTENDED TO. BED LOW, LOCKED, UPPER RAILS UP, AND CALL LIGHT WITHIN REACH. WILL CONT. TO MONITOR.
[2019-12-07] MEDS: MIRTAZAPINE 15 MG TABLET PO SCH (21:19)
[2019-12-07] MEDS: risperiDONE 0.25 MG TABLET PO SCH (21:19)
[2019-12-07] MEDS: SIMVASTATIN 20 MG TABLET PO SCH (21:19)
--- NOTE | 2019-12-08 06:21 | NUR ---
MS RN NOTE PT REMAINS IN STABLE CONDITION A/O X3, NO SIGNS OF SOB OR DISTRESS, NO C/O PAIN OR N/V. IV IN L FA#[address] WITH IVF INFUSING. ALL CURRENT NEEDS ATTENDED TO. BED LOW, LOCKED, UPPER RAILS UP, AND CALL LIGHT WITHIN REACH. WILL CONT. TO MONITOR AND ENDORSE TO NEXT SHIFT FOR BUD.
[2019-12-08 08:00] VITALS: BP 126/76
--- NOTE | 2019-12-08 08:00 | NUR ---
PAU RN OPENING NOTE RECEIVED PATIENT IN BED, WATCHING TV. BREATHING EVEN AND NON LABORED. ABLE TO MAKE NEEDS KNOWN. A&O X3. IN NO APPARENT DISTRESS NOTED. CALL LIGHT PLACED WITHIN REACH WILL CONTINUE TO MONITOR.
[2019-12-08] MEDS: ASPIRIN 81 MG TAB.CHEW PO SCH (09:12)
[2019-12-08] MEDS: predniSONE 20 MG TABLET PO SCH (09:12)
[2019-12-08] MEDS: FLUDROCORTISONE 0.1 MG TABLET PO SCH (09:12)
[2019-12-08] MEDS: PANTOPRAZOLE 40 MG TABLET.DR PO SCH (09:12)
[2019-12-08] MEDS: LEVOTHYROXINE SODIUM 125 MCG TABLET PO SCH (09:12)
[2019-12-08] MEDS: DOCUSATE SODIUM 100 MG CAPSULE PO SCH ×2 (09:12→16:48)
[2019-12-08] MEDS: HYDROXYCHLOROQUINE 200 MG TABLET PO SCH (09:12)
[2019-12-08] MEDS: buPROPion SR 150 MG TABLET.ER PO SCH ×2 (09:13→16:48)
[2019-12-08] MEDS: CARVEDILOL 3.125 MG TABLET PO SCH ×2 (09:13→16:49)
[2019-12-08] MEDS: NITROFURANTOIN MACROCRYSTAL 100 MG CAPSULE PO SCH (09:15)
[2019-12-08] MEDS: APIXABAN 5 MG TABLET PO SCH ×2 (09:16→16:50)
[2019-12-08] MEDS: NEUTRA PHOS 1 POWD.PACKET PO SCH ×2 (10:34→17:41)
[2019-12-08 11:02] LABS: BASOPHILS % (AUTO) 0.2 % (0.0-2.0); EOSINOPHILS % (AUTO) 0.6 % (0.0-6.0); HEMATOCRIT 30 % (33-45); HEMOGLOBIN 9.7 g/dL (11.5-14.8); LYMPHOCYTES # (AUTO) 1.6 /CMM (0.8-4.8); LYMPHOCYTES % (AUTO) 13.8 % (20.0-44.0); MEAN CORPUSCULAR HGB CONC 32 g/dl (31.0-36.0); MEAN CORPUSCULAR VOLUME 92 fL (82-100); MONOCYTES # (AUTO) 0.9 /CMM (0.1-1.30); MONOCYTES % (AUTO) 7.7 % (2.0-12.0); NEUTROPHILS # (AUTO) 8.8 /CMM (1.8-8.9); NEUTROPHILS % (AUTO) 77.7 % (43.0-81.0); PLATELET COUNT (AUTO) 256 /CMM (150-450); RED BLOOD CELL COUNT(AUTO) 3.28 MIL/uL (4.0-5.2); WHITE BLOOD COUNT (AUTO) 11.3 K/uL (4.3-11.0)
[2019-12-08 12:47] LABS: CALCIUM, SERUM 7.8 mg/dL (8.5-10.1)
[2019-12-08 12:57] LABS: IRON, SERUM 47 ug/dl (50-175); TOTAL IRON BINDING CAPACITY 302 ug/dl (250-450)
[2019-12-08 13:29] LABS: FERRITIN 108 ng/mL (8-388)
[2019-12-08 16:00] VITALS: BP 137/71
[2019-12-08] MEDS: POTASSIUM CHLORIDE 20 MEQ TAB.PRT.SR PO SCH ×3 (16:47→18:47)
--- NOTE | 2019-12-08 19:13 | NUR ---
RN OPENING NOTE RECEIVED PATIENT IN BED, A/O X 3, BREATHING EVEN AND NON LABORED. ABLE TO MAKE NEEDS KNOWN. IV SITE TO LFA PATENT AND INTACT CALL LIGHT WITHIN REACH WILL CONTINUE TO MONITOR PT.
[2019-12-08 20:00] VITALS: BP 149/87
[2019-12-08] MEDS: MIRTAZAPINE 15 MG TABLET PO SCH (22:18)
[2019-12-08] MEDS: risperiDONE 0.25 MG TABLET PO SCH (22:19)
[2019-12-08] MEDS: SIMVASTATIN 20 MG TABLET PO SCH (22:19)
[2019-12-09] MEDS: IV D5/0.45 NACL 1,000 ML IV PRN (02:56)
[2019-12-09 04:00] VITALS: BP 133/75
[2019-12-09 06:54] LABS: BASOPHILS % (AUTO) 0.3 % (0.0-2.0); HEMATOCRIT 31 % (33-45); HEMOGLOBIN 9.8 g/dL (11.5-14.8); LYMPHOCYTES # (AUTO) 1.7 /CMM (0.8-4.8); LYMPHOCYTES % (AUTO) 17.1 % (20.0-44.0); MEAN CORPUSCULAR HGB CONC 32 g/dl (31.0-36.0); MEAN CORPUSCULAR VOLUME 91 fL (82-100); MONOCYTES % (AUTO) 9.6 % (2.0-12.0); NEUTROPHILS # (AUTO) 7.2 /CMM (1.8-8.9); PLATELET COUNT (AUTO) 250 /CMM (150-450); RED BLOOD CELL COUNT(AUTO) 3.34 MIL/uL (4.0-5.2); WHITE BLOOD COUNT (AUTO) 9.9 K/uL (4.3-11.0)
--- NOTE | 2019-12-09 06:55 | NUR ---
RN CLOSING NOTE PATIENT IN BED SLEEPING BREATHING EVEN AND NON LABORED. ABLE TO MAKE NEEDS KNOWN. IV SITE TO LFA PATENT AND INTACT CALL LIGHT WITHIN REACH WILL ENORSE TO AM NURSE FOR BUD
[2019-12-09 07:09] LABS: CALCIUM, SERUM 7.9 mg/dL (8.5-10.1); CREATININE 0.8 mg/dL (0.6-1.3); MAGNESIUM 1.8 mg/dL (1.8-2.4); POTASSIUM 3.8 mmol/L (3.5-5.1)
--- NOTE | 2019-12-09 07:40 | NUR ---
RN OPENING NOTE: RECEIVED PATIENT IN BED THIS MORNING. NO ACUTE DISTRESS NOTED. NO SIGNS OF RESPIRATORY DISTRESS. LUNG SOUNDS CLEAR BILATERALLY. DISCOLORATION NOTED ON ALL EXTREMITIES. #20 ON LFA. SAFETY MEASURES IMPLEMENTED, BED IN LOWEST POSITION, LOCKED, SIDE RAILS UP X2, CALL LIGHT WITHIN REACH. WILL CONTINUE TO MONITOR PATIENT FOR ANY CHANGES.
[2019-12-09 08:00] VITALS: BP 154/86
[2019-12-09 08:11] VITALS: BP 154/86
[2019-12-09] MEDS: CARVEDILOL 3.125 MG TABLET PO SCH (08:11)
[2019-12-09] MEDS: DOCUSATE SODIUM 100 MG CAPSULE PO SCH (08:11)
[2019-12-09] MEDS: NITROFURANTOIN MACROCRYSTAL 100 MG CAPSULE PO SCH (08:11)
[2019-12-09] MEDS: ASPIRIN 81 MG TAB.CHEW PO SCH (08:11)
[2019-12-09] MEDS: LEVOTHYROXINE SODIUM 125 MCG TABLET PO SCH (08:12)
[2019-12-09] MEDS: PANTOPRAZOLE 40 MG TABLET.DR PO SCH (08:12)
[2019-12-09] MEDS: buPROPion SR 150 MG TABLET.ER PO SCH (08:12)
[2019-12-09] MEDS: predniSONE 20 MG TABLET PO SCH (08:12)
[2019-12-09] MEDS: FLUDROCORTISONE 0.1 MG TABLET PO SCH (08:12)
[2019-12-09] MEDS: HYDROXYCHLOROQUINE 200 MG TABLET PO SCH (08:15)
[2019-12-09] MEDS: APIXABAN 5 MG TABLET PO SCH (08:26)
--- NOTE | 2019-12-09 10:17 | NUR ---
EARLIER THIS MORNING, SWELLING ON PATIENT'S LEFT ARM WAS NOTICED. IVF STOPPED, IV LINE REMOVED, EXTREMITY ELEVATED. DOPPLER US ORDERED. CN, FOLDING MACHINE OPERATOR, GRANULATOR TENDER AND FAMILY NOTIFIED. WILL CONTINUE TO MONITOR PATIENT.
--- NOTE | 2019-12-09 14:35 | NUR ---
HEALTH ECONOMIST NOTE: PATIENT IS BEING DC HOME. UPON DISCHARGE ASSESSMENT, NO ACUTE DISTRESS NOTED. NO SIGNS OF RESPIRATORY DISTRESS. LUNG SOUNDS CLEAR BILATERALLY. SKIN INTACT APART FROM DISCOLORATION TO ALL EXTREMITIES. DISCHARGE ASSESSMENT COMPLETE. DISCHARGE PAPERWORK SIGNED. REPORT GIVEN TO TRANSPORTATION FOR CONTINUITY OF CARE AT HOME. PATIENT LEFT VIA GURNEY AT 1414.
[2019-12-10] MEDS ORDERED: CHOLECALCIFEROL (VITAMIN D 3) 400 UNIT TABLET PO SCH (06:30)
== END 2019-12-09 14:14 | disposition home or self-care (01) | DRG 640 ==
LOC: ER 10:29 → TELE1 13:04 → TELE-TD 13:49 → MEDSG1 12-07 08:23
PROVIDERS: ADMIT Legal Medicine; ATTEND Legal Medicine
DX: E86.0 Dehydration (principal); G93.41 Metabolic encephalopathy; R55 Syncope and collapse; F03.90 Unspecified dementia, unspecified severity, without behavioral disturbance, psychotic disturbance, mood disturbance, and anxiety; I10 Essential (primary) hypertension; E78.5 Hyperlipidemia, unspecified; M32.9 Systemic lupus erythematosus, unspecified; E03.9 Hypothyroidism, unspecified; Z79.01 Long term (current) use of anticoagulants; Z79.82 Long term (current) use of aspirin
CPT/HCPCS: 36415; 70450-TC; 71045-TC; 80048-TC; 80061-TC; 80076-TC; 80305; 81000-TC; 82140-TC; 82728-TC; 82962-TC; 83540-TC; 83605-TC; 83735-TC; 84100-TC; 84439-TC; 84443-TC; 84484-TC; 85025-TC; 85730-TC; 87040-TC; 87081-TC; 87086-TC; 93307-TC; 93971-TC; 97110-TC; 97112-TC; 97116-TC; 97530-TC; G0378; G0480; J2405; J2930; J3490; J7030

== ENCOUNTER 2020-02-27 12:48 | Inpatient (IN) | payer MEDICARE, BC ==
[~2020-02-27] VITALS: Ht 167.6 cm; Wt 61.2 kg
[~2020-02-27 12:48] MED LIST changes: +BUPR150T5 PO; -ESCI10TA PO; +MIRT15TA PO; +NITR100C PO; -SIMV-49 PO; +SIMV40TA2 PO
--- NOTE | 2020-02-27 12:48 | NUR ---
ABRAN 102 [facility], PER ADMIN "MORE ALTERED THAN USUAL SINCE SINCE 1230PM AND NOT EATING FOR 2 DAYS". TO ER BED 8, PATIENT ON SURGICAL MASK, CHANGED TO HOSP GOWN, HOOKED TO INSTALLATION HELPER AND POX, PATIENT REACTS TO PAINFUL STIMULI, BREATHING EVEN AND UNLABORED. DR KO AT BEDSIDE.
--- NOTE | 2020-02-27 13:24 | NUR ---
CORONAVIRUS SWAB DONE AND SENT TO LAB
[2020-02-27 13:35] LABS: APPEARANCE,URINE Cloudy (CLEAR); BASOPHILS % (AUTO) 0.3 % (0.0-2.0); BILIRUBIN,URINE SMALL (NEGATIVE); BLOOD, URINE Small Ery/uL (NEGATIVE); COLOR,URINE Yellow (YELLOW); EOSINOPHILS % (AUTO) 0.2 % (0.0-6.0); HEMATOCRIT 46 % (33-45); HEMOGLOBIN 14.5 g/dL (11.5-14.8); KETONES,URINE Trace (NEGATIVE); LEUKOCYTE ESTERASE ,URINE Moderate (NEGATIVE); LYMPHOCYTES # (AUTO) 1.2 /CMM (0.8-4.8); LYMPHOCYTES % (AUTO) 8.5 % (20.0-44.0); MEAN CORPUSCULAR HGB CONC 31 g/dl (31.0-36.0); MEAN CORPUSCULAR VOLUME 96 fL (82-100); MONOCYTES # (AUTO) 0.6 /CMM (0.1-1.30); MONOCYTES % (AUTO) 4.4 % (2.0-12.0); NEUTROPHILS # (AUTO) 11.9 /CMM (1.8-8.9); NEUTROPHILS % (AUTO) 86.6 % (43.0-81.0); NITRITE, URINE Negative (NEGATIVE); PH,URINE 7.5 (5.0-8.0); PLATELET COUNT (AUTO) 456 /CMM (150-450); PROTEIN,URINE >=300 mg/dl (NEGATIVE); RED BLOOD CELL COUNT(AUTO) 4.81 MIL/uL (4.0-5.2); UGLUCOSE Negative (NEGATIVE); UROBILINOGEN,URINE 0.2 EU/dL (0.2); WHITE BLOOD COUNT (AUTO) 13.7 K/uL (4.3-11.0)
--- NOTE | 2020-02-27 13:38 | NUR ---
WHEELED OUT VIA RNEY FOR CT SCAN
[2020-02-27 13:43] LABS: CALCIUM, SERUM 9.3 mg/dL (8.5-10.1); CARBON DIOXIDE 18 mmol/L (21-32); CHLORIDE 105 mmol/L (98-107); CREATININE 2.7 mg/dL (0.6-1.3); GLUCOSE 188 mg/dL (74-106); POTASSIUM 3.4 mmol/L (3.5-5.1); SODIUM SERUM 144 mmol/L (136-145); UREA NITROGEN, BLOOD 22 mg/dL (7-18)
[2020-02-27 13:49] LABS: ALANINE AMINOTRANSFERASE 31 U/L (12-78); ALBUMIN 2.4 g/dL (3.4-5.0); ASPARTATE AMINOTRANSFERASE 36 U/L (15-37); BILIRUBIN,DIRECT 0.3 mg/dL (0.0-0.2); BILIRUBIN,TOTAL 0.8 mg/dL (0.2-1.0); TOTAL PROTEIN, SERUM 6.5 g/dL (6.4-8.2)
[2020-02-27 13:53] LABS: WBC,URINE 21-50 /HPF (0-3)
[2020-02-27 13:54] LABS: BACTERIA,URINE Many /HPF (None Seen); SQUAMOUS EPITHELIAL CELL,UR Few /HPF (None Seen)
[2020-02-27 13:56] LABS: CREATINE KINASE, TOTAL 145 U/L (26-192); FERRITIN 400 ng/mL (8-388)
[2020-02-27 13:58] LABS: D-DIMER 2.2 mg/L(FEU (0.17-0.50)
[2020-02-27] MEDS ORDERED: CEFTRIAXONE 1GM BAG (ER ONLY) 50 ML IV ONE (13:59)
--- NOTE | 2020-02-27 13:59 | NUR ---
DR BIANCHI CALLED BUT MESSAGE SAYS [facility] IS ON-CALL FOR HIM,[facility] ON-CALL PAGED
[2020-02-27] MEDS ORDERED: CEFTRIAXONE 1GM BAG (ER ONLY) 1 GM/50 ML PIGGYBACK IV ONE (14:00)
[2020-02-27] MEDS ORDERED: IV NS 0.9% 1,000 ML BAG IV ONE (14:00)
[2020-02-27 14:06] LABS: C-REACTIVE PROTEIN 11.4 mg/dL (0.0-0.9)
[2020-02-27 14:12] LABS: ALKALINE PHOSPHATASE 108 U/L (46-116); B-TYPE NATRIURETIC PEPTIDE 445 PG/ML (0-125)
--- NOTE | 2020-02-27 14:27 | NUR ---
BED 104
--- NOTE | 2020-02-27 14:56 | NUR ---
REPORT GIVEN TO TRINITY OF TELE UNIT
[2020-02-27 15:00] VITALS: BP 126/72
--- NOTE | 2020-02-27 15:00 | NUR ---
TRANSITION LEAD NOTES ADMITTED THIS PATIENT FROM ER, DX SEPSIS, BY DR. PARR, OPENS EYES, NON VERBAL, RESPONDS TO PAIN. ON RA, O2 SAT 97%, SINUS RHYTHM ON MONITOR. NO SIGNS OF PAIN, RT WRIST G 20 FLUSHES WELL, SITE CLEAR. PHOTOS OF SKIN ISSUES TAKEN AND PLACED INSIDE CHART. ISOLATION PRECAUTION FOR R/O COVID. SAFETY MEASURES IN PLACE. BED LOW LOCKED. HOB UP, SR UP X 2. CALL LIGHT WITHIN REACH. WILL CONT TO MONITOR.
[2020-02-27] MEDS ORDERED: MAGNESIUM HYDROXIDE 30 ML UDC PO PRN (15:30)
[2020-02-27] MEDS ORDERED: MAG HYDROX/AL HYDROX/SIMETH 30 ML UDC PO PRN (15:30)
[2020-02-27] MEDS ORDERED: ACETAMINOPHEN 325 MG TABLET PO PRN (15:30)
[2020-02-27] MEDS ORDERED: ONDANSETRON HCL/PF 4 MG/2 ML VIAL IVP PRN (15:30)
[2020-02-27] MEDS ORDERED: Z GUARD REMEDY 2 OZ OINT TP PRN (15:30)
[2020-02-27] MEDS ORDERED: HYDROCODONE/APAP 5/325MG 1 EACH TABLET PO PRN (15:30)
[2020-02-27] MEDS ORDERED: ZOLPIDEM TARTRATE 5 MG TABLET PO PRN (15:30)
[2020-02-27 16:00] VITALS: BP 126/72
[2020-02-27] MEDS: POTASSIUM CL. PREMIX PERIPHER. 50 ML IV SCH ×2 (16:16→17:33)
[2020-02-27] MEDS: IV NS 0.9% 1,000 ML IV PRN (16:59)
[2020-02-27] MEDS: CARVEDILOL 3.125 MG TABLET PO SCH (17:39)
[2020-02-27] MEDS: buPROPion SR 150 MG TABLET.ER PO SCH (17:39)
[2020-02-27] MEDS: APIXABAN 5 MG TABLET PO SCH (17:45)
[2020-02-27] MEDS: CEFTRIAXONE 1 G in IV D5W 50 ML IV SCH (18:14)
--- NOTE | 2020-02-27 19:15 | NUR ---
TELE/RN OPENING RECEIVED PATIENT IN BED WITH NO SIGN OF ANY DISTRESS. PATIENT IS ON ROOM AIR WITH NO SIGNS OF ANY SOB. PATIENT IS A/O X2 ABLE TO STATE NAME. PATIENT SPEAKS OCCASIONALLY AND CLEAR. PATIENT SPEAKS MINIMALLY DUE TO SORES IN HER MOUTH. SKIN ASSESSED WITH MULTIPLE SKIN ISSUES DISCOLORATION ON BILATERAL LOWER EXTREMITIES. PATIENT HAS SOME STRENGTH ON EXTREMITIES. FC DRAINING VIA GRAVITY WITH TEA COLOR URINE AND WHITE PURULENT CLOTS. ALL SAFETY PRECAUTIONS APPLIED. BED ALARM ON. WILL CONTINUE TO MONITOR PATIENT THROUGHOUT.
[2020-02-27 20:00] VITALS: BP 105/52
[2020-02-27] MEDS: MIRTAZAPINE 15 MG TABLET PO SCH (22:00)
[2020-02-27] MEDS: SIMVASTATIN 20 MG TABLET PO SCH (22:00)
[2020-02-27] MEDS: risperiDONE 0.25 MG TABLET PO SCH (22:00)
--- NOTE | 2020-02-27 22:03 | NUR ---
TELE/RN NOTE PATIENT HAS SORES IN MOUTH THAT CAUSES PAIN. PATIENT REFUSED TO TAKE PO MEDS OR DRINK WATER.
[2020-02-28] VITALS: BP 123/74
[2020-02-28 04:00] VITALS: BP 116/52
[2020-02-28] MEDS: IV NS 0.9% 1,000 ML IV PRN ×2 (04:24→19:15)
[2020-02-28 06:11] LABS: BASOPHILS % (AUTO) 0.2 % (0.0-2.0); EOSINOPHILS % (AUTO) 0.2 % (0.0-6.0); HEMATOCRIT 37 % (33-45); LYMPHOCYTES # (AUTO) 1.4 /CMM (0.8-4.8); LYMPHOCYTES % (AUTO) 6.7 % (20.0-44.0); MEAN CORPUSCULAR HGB CONC 32 g/dl (31.0-36.0); MEAN CORPUSCULAR VOLUME 94 fL (82-100); MONOCYTES # (AUTO) 1.5 /CMM (0.1-1.30); MONOCYTES % (AUTO) 7.3 % (2.0-12.0); NEUTROPHILS # (AUTO) 17.8 /CMM (1.8-8.9); NEUTROPHILS % (AUTO) 85.6 % (43.0-81.0); PLATELET COUNT (AUTO) 368 /CMM (150-450); RED BLOOD CELL COUNT(AUTO) 3.98 MIL/uL (4.0-5.2); WHITE BLOOD COUNT (AUTO) 20.8 K/uL (4.3-11.0)
[2020-02-28 06:45] LABS: CALCIUM, SERUM 7.6 mg/dL (8.5-10.1); CREATININE 1.5 mg/dL (0.6-1.3); MAGNESIUM 1.9 mg/dL (1.8-2.4); PHOSPHORUS 3.6 mg/dL (2.5-4.9); POTASSIUM 3.1 mmol/L (3.5-5.1)
--- NOTE | 2020-02-28 06:46 | NUR ---
TELE/RN CLOSING PATIENT IN BED WITH NO DISTRESS. PATIENT ON ROOM AIR SATURATING AT 97% WITH NO SIGN OF SOB. NON EVENTFUL THROUGHOUT NIGHT. NO FEVER, VITALS WNL. ALL SAFETY PRECAUTIONS. WILL ENDORSE TO MORNING SHIFT NURSE FOR BUD.
[2020-02-28 08:00] VITALS: BP 133/78
[2020-02-28] MEDS: ASPIRIN 81 MG TAB.CHEW PO SCH (09:08)
[2020-02-28] MEDS: PANTOPRAZOLE 40 MG TABLET.DR PO SCH (09:08)
[2020-02-28] MEDS: CARVEDILOL 3.125 MG TABLET PO SCH ×2 (09:09→17:50)
[2020-02-28] MEDS: LEVOTHYROXINE SODIUM 125 MCG TABLET PO SCH (09:09)
[2020-02-28] MEDS: FLUDROCORTISONE 0.1 MG TABLET PO SCH (09:09)
[2020-02-28] MEDS: CYANOCOBALAMIN 500 MCG TABLET PO SCH (09:10)
[2020-02-28] MEDS: buPROPion SR 150 MG TABLET.ER PO SCH ×2 (09:10→17:47)
[2020-02-28] MEDS: predniSONE 20 MG TABLET PO SCH (09:10)
[2020-02-28] MEDS: APIXABAN 5 MG TABLET PO SCH ×2 (09:11→17:47)
[2020-02-28] MEDS: POTASSIUM CL. PREMIX PERIPHER. 50 ML IV SCH ×2 (11:31→12:44)
[2020-02-28 12:00] VITALS: BP 132/77
[2020-02-28] MEDS: NYSTATIN (PYXIS) 500,000 UNIT/5 ML ORAL.SUSP PO SCH ×3 (13:01→22:36)
[2020-02-28] MEDS: CEFTRIAXONE 1 G in IV D5W 50 ML IV SCH (15:55)
[2020-02-28 16:00] VITALS: BP 112/54
--- NOTE | 2020-02-28 16:43 | NUR ---
FOLLOWUP COVID RESULTS STILL PENDING.
--- NOTE | 2020-02-28 19:30 | NUR ---
BALANCE WEIGHER OPENING NOTE RECEIVED PATIENT ON ISOLATION FOR R/O COVID 19. PATIENT IN BED. A/OX 2. TOLERATING ROOM AIR AT THIS TIME. RESPIRATIONS ARE EVEN AND UNLABORED. NO S/S SOB NOTED. NO C/O PAIN AT THIS TIME. EXTERNAL TELE MONITOR READS SINUS RHYTHM HR 71. IN NO APPARENT DISTRESS. IV ACCESS IN RIGHT WRIST #20 RUNNING NS@70ML/HR. VELEZ CATHETER IS PRESENT, DRAINING TO GRAVITY, URINE IS YELLOW. BED IS LOW AND LOCKED, HOB ELEVATED IN SEMI FOWLERS, SIDE RAILS UP X2-3. CALL LIGHT WITHIN REACH. WILL CONTINUE TO MONITOR.
--- NOTE | 2020-02-28 19:33 | NUR ---
SEARCH MANAGER NOTES PATIENT IN BED SITTING COMFORTABLY. NO SOB OR DISCOMFORT NOTED AT THIS TIME. ALL NEEDS ATTENDED.REPORT GIVEN TO LEATHER TOOLER NURSE FOR BUD.
[2020-02-28 20:00] VITALS: BP 104/56
[2020-02-28] MEDS: risperiDONE 0.25 MG TABLET PO SCH (22:00)
[2020-02-28] MEDS: SIMVASTATIN 20 MG TABLET PO SCH (22:37)
[2020-02-28] MEDS: MIRTAZAPINE 15 MG TABLET PO SCH (22:37)
[2020-02-29] VITALS: BP 121/60
[2020-02-29 04:00] VITALS: BP 141/80
[2020-02-29 06:35] LABS: URINE TOTAL PROTEIN 122.1 mg/dL (0-11.9)
[2020-02-29 06:45] LABS: BASOPHILS # (AUTO) 0.1 /CMM (0.0-0.2); BASOPHILS % (AUTO) 0.5 % (0.0-2.0); EOSINOPHILS % (AUTO) 1.7 % (0.0-6.0); HEMATOCRIT 36 % (33-45); HEMOGLOBIN 11.7 g/dL (11.5-14.8); LYMPHOCYTES # (AUTO) 1.2 /CMM (0.8-4.8); LYMPHOCYTES % (AUTO) 11.9 % (20.0-44.0); MEAN CORPUSCULAR HGB CONC 33 g/dl (31.0-36.0); MEAN CORPUSCULAR VOLUME 93 fL (82-100); MONOCYTES # (AUTO) 1.3 /CMM (0.1-1.30); MONOCYTES % (AUTO) 12.9 % (2.0-12.0); NEUTROPHILS # (AUTO) 7.2 /CMM (1.8-8.9); PLATELET COUNT (AUTO) 343 /CMM (150-450); RED BLOOD CELL COUNT(AUTO) 3.82 MIL/uL (4.0-5.2); WHITE BLOOD COUNT (AUTO) 9.8 K/uL (4.3-11.0)
--- NOTE | 2020-02-29 06:53 | NUR ---
PREASSEMBLER AND INSPECTOR CLOSING NOTE PATIENT IN BED. A/OX 2. REMAINS TOLERATING ROOM AIR. RESPIRATIONS ARE EVEN AND UNLABORED. NO S/S SOB. NO C/O PAIN T/O SHIFT. IN NO DISTRESS NOTED. IV ACCESS MAINTAINED IN RIGHT WRIST #20 RUNNING NS@70ML/HR. VELEZ CATHETER IS MAINTAINED, DRAINING TO GRAVITY, URINE IS YELLOW OUTPUT 240. BED REMAINS LOW AND LOCKED, HOB ELEVATED IN SEMI FOWLERS, SIDE RAILS UP X2-3. CALL LIGHT WITHIN REACH. WILL ENDORSE TO NEXT SHIFT.
[2020-02-29 07:08] LABS: APPEARANCE,URINE CLEAR (CLEAR); BILIRUBIN,URINE NEGATIVE (NEGATIVE); BLOOD, URINE SMALL Ery/uL (NEGATIVE); COLOR,URINE YELLOW (YELLOW); KETONES,URINE NEGATIVE (NEGATIVE); LEUKOCYTE ESTERASE ,URINE TRACE (NEGATIVE); NITRITE, URINE NEGATIVE (NEGATIVE); PROTEIN,URINE 30 mg/dl (NEGATIVE); UGLUCOSE NEGATIVE (NEGATIVE); UROBILINOGEN,URINE 0.2 EU/dL (0.2)
[2020-02-29 07:13] LABS: ALBUMIN 1.9 g/dL (3.4-5.0); BILIRUBIN,TOTAL 0.4 mg/dL (0.2-1.0); CALCIUM, SERUM 7.9 mg/dL (8.5-10.1); MAGNESIUM 1.7 mg/dL (1.8-2.4); PHOSPHORUS 1.8 mg/dL (2.5-4.9); POTASSIUM 2.9 mmol/L (3.5-5.1); TOTAL PROTEIN, SERUM 5.2 g/dL (6.4-8.2)
--- NOTE | 2020-02-29 07:15 | NUR ---
BEAMSTER OPENING NOTE PATIENT IN BED RESTING COMFORTABLY. PATIENT IN NO ACUTE DISTRESS. NO SOB NOTED. PATIENT BREATHING IS EVEN AND UNLABORED. PATIENT ON CARDIAC MONITORING READING SINUS RHYTHM HR 72. PATIENT HOB IS ELEVATED. PATIENT BED IS LOCKED AND IN LOWEST POSITION. CALL LIGHT WITHIN REACH. WILL CONTINUE TO MONITOR.
[2020-02-29 07:23] LABS: BACTERIA,URINE Few /HPF (None Seen)
[2020-02-29 07:59] LABS: EOSINOPHIL,URINE None Seen
[2020-02-29 08:00] VITALS: BP 138/81
--- NOTE | 2020-02-29 08:00 | NUR ---
MS MULTIMEDIA SPECIALIST FROM PAU NOTES RECEIVED PATIENT IN BED RESTING COMFORTABLY. PATIENT IN NO ACUTE DISTRESS. NO SOB NOTED. PATIENT BREATHING IS EVEN AND UNLABORED. WITH PATIENT HOB IS ELEVATED. WITH ONGOING IV POTASSIUM PHOSPHATE IV WITH IV NS .WILL REPLACE NS 1 LITER BAG. PT IS ON NPO EXCEPT MEDS. PATIENT BED IS LOCKED AND IN LOWEST POSITION. CALL LIGHT WITHIN REACH. WILL CONTINUE TO MONITOR.
--- NOTE | 2020-02-29 08:11 | NUR ---
CHEMISTRY RESULT IN RELAYED TO DR. JUNIOR PER MD HE WILL PUT ORDERS.AWARE K IS LOW.
--- NOTE | 2020-02-29 08:12 | NUR ---
PATIENT COVID NEGATIVE NURSING SUP AWARE ,AWAITS FOR CLEAN BED IN 3WEST.
[2020-02-29] MEDS ORDERED: POTASSIUM CHLORIDE 20 MEQ TAB.PRT.SR PO ONE (08:30)
[2020-02-29] MEDS: PANTOPRAZOLE 40 MG TABLET.DR PO SCH (08:32)
[2020-02-29] MEDS: FLUDROCORTISONE 0.1 MG TABLET PO SCH (08:32)
[2020-02-29] MEDS: APIXABAN 5 MG TABLET PO SCH ×2 (08:34→18:03)
[2020-02-29] MEDS: CYANOCOBALAMIN 500 MCG TABLET PO SCH (08:35)
[2020-02-29] MEDS: buPROPion SR 150 MG TABLET.ER PO SCH ×2 (08:35→18:03)
[2020-02-29] MEDS: ASPIRIN 81 MG TAB.CHEW PO SCH (08:35)
[2020-02-29] MEDS: CARVEDILOL 3.125 MG TABLET PO SCH ×2 (08:36→18:03)
[2020-02-29] MEDS: predniSONE 20 MG TABLET PO SCH (08:37)
[2020-02-29] MEDS: NYSTATIN (PYXIS) 500,000 UNIT/5 ML ORAL.SUSP PO SCH ×4 (08:38→21:01)
[2020-02-29] MEDS: LEVOTHYROXINE SODIUM 125 MCG TABLET PO SCH (08:38)
[2020-02-29] MEDS: POTASSIUM PHOSPHATE MM 7.5 MMOL in IV NS 0.9% 100 ML IV SCH ×2 (08:59→18:02)
--- NOTE | 2020-02-29 09:25 | NUR ---
WOUND CARE CONSULT: PT PRESENTS WITH RASH TO BREAST FOLDS AND ABDOMINAL FOLDS, LEFT LOWER LEG DRY SCAB AND SACRAL INTACT DEEP TISSUE INJURY, PRESENT ON ADMISSION. DISCOLORATION NOTED TO LOWER LEGS AND FEET, PRESENT ON ADMISSION. RECOMMENDATIONS MADE FOR SKIN PROTECTION AND WOUND CARE. DISCUSSED WITH NURSING STAFF. WILL SEE PRN. TONEY IN AGREEMENT WITH PLAN OF CARE. Addendum: 02/29/20 at 0988 by RONI GEORGES WNDNU Amended: Links added.
--- NOTE | 2020-02-29 10:15 | NUR ---
MS AUTOMATION QA TESTER NOTE PATIENT IN BED RESTING COMFORTABLY. PATIENT IN NO ACUTE DISTRESS. NO SOB NOTED. PATIENT BREATHING IS EVEN AND UNLABORED. ORDER AND TRANSFER TO [facility]. REPORT GIVEN TO DYLAN Raymond RN AND ENDORSED ALL CARE TO DYLAN Raymond RN FOR BUD.
[2020-02-29 10:20] VITALS: BP 144/68
--- NOTE | 2020-02-29 10:20 | NUR ---
MS BLANKBOOK STITCHING MACHINE OPERATOR FROM PAU NOTES RECEIVED PATIENT IN BED RESTING COMFORTABLY. PATIENT IN NO ACUTE DISTRESS. NO SOB NOTED. PATIENT BREATHING IS EVEN AND UNLABORED. WITH PATIENT HOB IS ELEVATED. WITH ONGOING IV POTASSIUM PHOSPHATE IV WITH IV NS .WILL REPLACE NS 1 LITER BAG. PT IS ON NPO EXCEPT MEDS. PATIENT BED IS LOCKED AND IN LOWEST POSITION. CALL LIGHT WITHIN REACH. WILL CONTINUE TO MONITOR.
[2020-02-29] MEDS: IV NS 0.9% 1,000 ML IV PRN ×2 (10:41→21:01)
--- NOTE | 2020-02-29 10:52 | NUR ---
INFUSING POTASSIUM PO4 IV FIRST BAG AND PT IS SO SENSITIVE WITH THE PRESENT RATE OF 34.167 ML/HR AND IS C/O FEELS BURNING ON THE IV SITE AND ADJUSTED IT ON A LOWER RATE FOR PT'S COMFORT DELAYING COMPLETION POTASSIUM PO4 AND MAG IV ADMINISTRATION.
[2020-02-29] MEDS: Magnesium 1GM/D5W 100ML PREMIX 100 ML IV SCH ×2 (12:52→14:09)
[2020-02-29] MEDS: CEFTRIAXONE 1 G in IV D5W 50 ML IV SCH (15:12)
[2020-02-29 16:00] VITALS: BP 126/73
[2020-02-29] MEDS: CLOTRIMAZOLE 1% 15 GM TUBE TP SCH (18:14)
--- NOTE | 2020-02-29 19:00 | NUR ---
ONGOING INFUSION OF 2ND K+PO4 BAG TOGETHER WITH ONGOING MAIN IVF NS RUNNING WELL AT 70 ML/HR.PT TOLERATING IT WELL.DENIES PAIN OR DISTRESS. TURNED EVERY TWO HRS.CALL LIGHT PLACED WITHIN REACH.
--- NOTE | 2020-02-29 19:30 | NUR ---
MS RN OPENING NOTE RECEIVED PATIENT IN BED. A/OX 2. TOLERATING ROOM AIR AT THIS TIME. RESPIRATIONS ARE EVEN AND UNLABORED. NO S/S SOB NOTED. NO C/O PAIN AT THIS TIME. IN NO APPARENT DISTRESS. IV ACCESS IN RIGHT WRIST #20 RUNNING K@40ML/HR. VELEZ CATHETER IS PRESENT, DRAINING TO GRAVITY, URINE IS CLEAR AND YELLOW. BED IS LOW AND LOCKED, HOB ELEVATED IN SEMI FOWLERS, SIDE RAILS UP X2-3. CALL LIGHT WITHIN REACH. WILL CONTINUE TO MONITOR.
[2020-02-29 20:00] VITALS: BP 123/70
[2020-02-29] MEDS: SIMVASTATIN 20 MG TABLET PO SCH (21:01)
[2020-02-29] MEDS: MIRTAZAPINE 15 MG TABLET PO SCH (21:01)
[2020-02-29] MEDS: risperiDONE 0.25 MG TABLET PO SCH (22:04)
--- NOTE | 2020-03-01 06:48 | NUR ---
MS RN CLOSING NOTE PATIENT IN BED. A/OX 2. TOLERATING ROOM AIR. RESPIRATIONS ARE EVEN AND UNLABORED. NO SOB NOTED. NO C/O PAIN T/O SHIFT. NO DISTRESS. IV ACCESS MAINTAINED IN RIGHT WRIST #20 NS@70ML/HR. VELEZ CATHETER IS MAINTAINED, DRAINING TO GRAVITY, URINE IS CLEAR AND YELLOW, OUTPUT 400ML. BED REMAINS LOW AND LOCKED, HOB ELEVATED IN SEMI FOWLERS, SIDE RAILS UP X2-3. CALL LIGHT WITHIN REACH. WILL ENDORSE TO NEXT SHIFT.
[2020-03-01 07:07] LABS: COMPLEMENT C3, SERUM 91 mg/dL (82-167); COMPLEMENT C4, SERUM 31 mg/dL (14-44)
[2020-03-01 07:57] LABS: BASOPHILS # (AUTO) 0.1 /CMM (0.0-0.2); BASOPHILS % (AUTO) 0.6 % (0.0-2.0); EOSINOPHILS % (AUTO) 1.5 % (0.0-6.0); HEMATOCRIT 36 % (33-45); HEMOGLOBIN 11.6 g/dL (11.5-14.8); LYMPHOCYTES # (AUTO) 1.1 /CMM (0.8-4.8); LYMPHOCYTES % (AUTO) 11.5 % (20.0-44.0); MEAN CORPUSCULAR HGB CONC 32 g/dl (31.0-36.0); MEAN CORPUSCULAR VOLUME 94 fL (82-100); MONOCYTES # (AUTO) 1.2 /CMM (0.1-1.30); MONOCYTES % (AUTO) 11.9 % (2.0-12.0); NEUTROPHILS # (AUTO) 7.2 /CMM (1.8-8.9); NEUTROPHILS % (AUTO) 74.5 % (43.0-81.0); PLATELET COUNT (AUTO) 340 /CMM (150-450); RED BLOOD CELL COUNT(AUTO) 3.85 MIL/uL (4.0-5.2); WHITE BLOOD COUNT (AUTO) 9.7 K/uL (4.3-11.0)
[2020-03-01 08:00] VITALS: BP 126/75
--- NOTE | 2020-03-01 08:00 | NUR ---
MS RN OPENING NOTE RECEIVED PATIENT IN BED. A/OX 2. TOLERATING ROOM AIR AT THIS TIME. RESPIRATIONS ARE EVEN AND UNLABORED ON ROOM AIR. NO S/S SOB NOTED. NO C/O PAIN AT THIS TIME. IN NO APPARENT DISTRESS. IV ACCESS IN RIGHT WRIST #200 RUNNING K@70ML/HR. VELEZ CATHETER IS PRESENT, DRAINING TO GRAVITY, URINE IS CLEAR AND YELLOW. BED IS LOW AND LOCKED, HOB ELEVATED IN SEMI FOWLERS, SIDE RAILS UP X2-3. CALL LIGHT WITHIN REACH. WILL CONTINUE TO MONITOR.
[2020-03-01 08:07] LABS: *SPE A/G RATIO 0.8 (0.7-1.7); *SPE ALBUMIN 2.1 g/dL (2.9-4.4); *SPE ALPHA-1-GLOBULIN 0.4 g/dL (0.0-0.4); *SPE BETA GLOBULIN 0.6 g/dL (0.7-1.3); *SPE GLOBULIN, TOTAL 2.5 g/dL (2.2-3.9); *SPE M-SPIKE Not Observed g/dL (Not Observed); *SPEGAMMA GLOBULIN 0.5 g/dL (0.4-1.8); PTH, INTACT 17 pg/mL (15-65)
[2020-03-01 08:20] LABS: ALBUMIN 1.8 g/dL (3.4-5.0); BILIRUBIN,TOTAL 0.4 mg/dL (0.2-1.0); CALCIUM, SERUM 7.5 mg/dL (8.5-10.1); CREATININE 0.9 mg/dL (0.6-1.3); MAGNESIUM 2.6 mg/dL (1.8-2.4); PHOSPHORUS 2.5 mg/dL (2.5-4.9); TOTAL PROTEIN, SERUM 4.9 g/dL (6.4-8.2)
[2020-03-01] MEDS: ASPIRIN 81 MG TAB.CHEW PO SCH (08:23)
[2020-03-01] MEDS: CYANOCOBALAMIN 500 MCG TABLET PO SCH (08:23)
[2020-03-01] MEDS: buPROPion SR 150 MG TABLET.ER PO SCH ×2 (08:23→18:42)
[2020-03-01] MEDS: LEVOTHYROXINE SODIUM 125 MCG TABLET PO SCH (08:23)
[2020-03-01] MEDS: CARVEDILOL 3.125 MG TABLET PO SCH ×2 (08:23→18:42)
[2020-03-01] MEDS: predniSONE 20 MG TABLET PO SCH (08:23)
[2020-03-01] MEDS: FLUDROCORTISONE 0.1 MG TABLET PO SCH (08:23)
[2020-03-01] MEDS: PANTOPRAZOLE 40 MG TABLET.DR PO SCH (08:23)
[2020-03-01] MEDS: NYSTATIN (PYXIS) 500,000 UNIT/5 ML ORAL.SUSP PO SCH ×4 (08:26→20:47)
[2020-03-01] MEDS: APIXABAN 5 MG TABLET PO SCH ×2 (08:28→18:43)
[2020-03-01] MEDS: CLOTRIMAZOLE 1% 15 GM TUBE TP SCH ×2 (08:29→18:44)
[2020-03-01 08:31] LABS: POTASSIUM 2.8 mmol/L (3.5-5.1)
[2020-03-01] MEDS: POTASSIUM CL. PREMIX PERIPHER. 50 ML IV SCH ×6 (10:13→19:06)
--- NOTE | 2020-03-01 11:30 | NUR ---
On Potassium IV ongoing and pt can't tolerated the actual rate saying its painful on the site even if it's infused with IV NS to decrease irritation on the site. Adjusted K+ IV infusion rate with dilution of IV NS infusion according to patient's comfort delaying the infusion of K+ IV.
[2020-03-01] MEDS: LEVOFLOXACIN 500 MG /D5W 100ML 500 MG in PREMIX 1 EA IV SCH (13:26)
[2020-03-01 14:11] LABS: CREATININE KINASE (CK),MB 5.2 ng/mL (0.0-5.3)
--- NOTE | 2020-03-01 15:09 | NUR ---
Just started infusing third bag of potassium IV and pt started c/o severe pain on the IV site.Held Potassium IV infusion.IV site got infiltrated and was leaking at the same time. Pt is a hardstick -notified Dr Wood if we can change Potassium 40 meq IV bags to po instead. Also pt has a lot of bruises from all the blood draw and IV heplock insertion attempts and is on NPO except meds. So notified Dr Wood for midline insertion for the patient.Awaiting for reply.
[2020-03-01] MEDS: IV NS 0.9% 1,000 ML IV PRN (15:12)
[2020-03-01 16:00] VITALS: BP 126/71
--- NOTE | 2020-03-01 16:37 | NUR ---
TONA harden inserted and removed rt wrist heplock. Continued to infuse IV potassium for replacement depleted K+ level.
--- NOTE | 2020-03-01 18:37 | NUR ---
PT'S VELEZ CATHETER CAME OF WITH FLAT END OF THE BALLOON.NO BLEEDING NOTED. NOTIFIED DR BIANCHI WITH ORDERS TO DC THE VELEZ.
--- NOTE | 2020-03-01 19:00 | NUR ---
PT RESTING IN BED WITH ONGOING IV POTASSIUM AND ABLE TO TOLERATE PILLS GIVEN ONE PILL AT A TIME BECAUSE PT KEEPS SAYING SHE IS HAVING A HARD TIME SWALLOWING PILLS WHICH ACCORDING TO THE BALL TRUING MACHINE OPERATOR OF "[facility] B[facility]", OPAL SHE STATED THAT PT ALWAYS C/O SORE THROAT SAYING SHE CAN NOT SWALLOW. OPAL ADDED THAT PT LOVES CHOCOLATE PUDDING.OFFERED IT ON THE PT AND SPITTED IT OUT. PT REFUSED OTHER SOFT PUREED FOODS WELL.NOTIFIED DR BIANCHI AND ORDERED SWALLOW EVAL.
--- NOTE | 2020-03-01 19:30 | NUR ---
MS RN OPENING NOTE RECEIVED PATIENT IN BED. A/OX 2. TOLERATING ROOM AIR AT THIS TIME. RESPIRATIONS ARE EVEN AND UNLABORED. NO S/S SOB NOTED. STATES PAIN IS 7/10 INFORMED HER WILL BRING MEDICATION SOON ABLE TO. IN NO APPARENT DISTRESS. IV ACCESS IN TONA MIDLINE RUNNING NS@70ML/HR. BED IS LOW AND LOCKED, HOB ELEVATED IN SEMI FOWLERS, SIDE RAILS UP X2-3. CALL LIGHT WITHIN REACH. WILL CONTINUE TO MONITOR.
[2020-03-01 20:00] VITALS: BP 156/88
--- NOTE | 2020-03-01 20:48 | NUR ---
MS RN NOTE ADMINISTERED PRN NORCO 5/325 FOR PAIN 7/10 IN BACK. WILL CONTINUE TO MONITOR.
[2020-03-01] MEDS: SIMVASTATIN 20 MG TABLET PO SCH (21:27)
[2020-03-01] MEDS: MIRTAZAPINE 15 MG TABLET PO SCH (21:27)
[2020-03-01] MEDS: risperiDONE 0.25 MG TABLET PO SCH (23:12)
--- NOTE | 2020-03-02 04:19 | NUR ---
ms rn note Changed patient with freight brakeman. noticed right forearm is swollen. patient has sil midline inserted shift prior. patients right forearm is cool to touch. left forearm is visibly smaller/thinner and warm. turned off ivf fluids. elevated patients are on pillow. picture taken and placed in chart. charge nurse aware.
--- NOTE | 2020-03-02 06:15 | NUR ---
MS RN closING NOTE PATIENT IN BED. A/OX 2. REMAINS TOLERATING ROOM AIR AT THIS TIME. RESPIRATIONS ARE EVEN AND UNLABORED. NO SOB NOTED. MANAGED PAIN WITH NORCO 5/325. NO DISTRESS. IV ACCESS IN TONA MIDLINE SALINE LOCKED D/T SWOLLEN FOREARM, ELEVATED ON PILLOW. BED REMAINS LOW AND LOCKED, HOB ELEVATED IN SEMI FOWLERS, SIDE RAILS UP X2-3. CALL LIGHT WITHIN REACH. WILL ENDORSE TO NEXT SHIFT
[2020-03-02 07:37] LABS: CALCIUM, SERUM 7.7 mg/dL (8.5-10.1); CREATININE 0.8 mg/dL (0.6-1.3); POTASSIUM 4.5 mmol/L (3.5-5.1)
[2020-03-02 08:00] VITALS: BP 102/64
--- NOTE | 2020-03-02 08:16 | NUR ---
MS/RN OPENING NOTE RECEIVED PATIENT IN BED. ALERT AND ORIENTED X 3. TOLERATING ROOM AIR AT THIS TIME. RESPIRATIONS ARE EVEN AND UNLABORED, NO S/S SOB NOTED. PATIENT STATES NO PAIN AT THIS TIME 0/10. SHOWS NO SIGNS OF APPARENT DISTRESS. IV ACCESS IN TONA MIDLINE SALINE LOCKED D/T SWOLLEN FOREARM, ELEVATED ON PILLOW. . BED IS LOW AND LOCKED, HOB ELEVATED IN SEMI FOWLERS, SIDE RAILS UP X 2. CALL LIGHT WITHIN REACH, SAFETY MEASURES APPLIED, WILL CONTINUE TO MONITOR.
[2020-03-02 08:20] LABS: BASOPHILS % (AUTO) 0.2 % (0.0-2.0); EOSINOPHILS % (AUTO) 0.6 % (0.0-6.0); HEMATOCRIT 35 % (33-45); HEMOGLOBIN 11.1 g/dL (11.5-14.8); LYMPHOCYTES # (AUTO) 1.2 /CMM (0.8-4.8); LYMPHOCYTES % (AUTO) 10.8 % (20.0-44.0); MEAN CORPUSCULAR HGB CONC 32 g/dl (31.0-36.0); MEAN CORPUSCULAR VOLUME 94 fL (82-100); MONOCYTES % (AUTO) 9.4 % (2.0-12.0); NEUTROPHILS # (AUTO) 8.8 /CMM (1.8-8.9); PLATELET COUNT (AUTO) 325 /CMM (150-450); RED BLOOD CELL COUNT(AUTO) 3.73 MIL/uL (4.0-5.2); WHITE BLOOD COUNT (AUTO) 11.1 K/uL (4.3-11.0)
[2020-03-02] MEDS: CARVEDILOL 3.125 MG TABLET PO SCH ×2 (09:00→17:00)
[2020-03-02] MEDS: predniSONE 20 MG TABLET PO SCH (09:41)
[2020-03-02] MEDS: NYSTATIN (PYXIS) 500,000 UNIT/5 ML ORAL.SUSP PO SCH ×3 (09:41→17:43)
[2020-03-02] MEDS: buPROPion SR 150 MG TABLET.ER PO SCH ×2 (09:41→17:43)
[2020-03-02] MEDS: FLUDROCORTISONE 0.1 MG TABLET PO SCH (09:42)
[2020-03-02] MEDS: APIXABAN 5 MG TABLET PO SCH ×2 (09:42→17:00)
[2020-03-02] MEDS: ASPIRIN 81 MG TAB.CHEW PO SCH (09:42)
[2020-03-02] MEDS: CYANOCOBALAMIN 500 MCG TABLET PO SCH (09:44)
[2020-03-02] MEDS: PANTOPRAZOLE 40 MG TABLET.DR PO SCH (09:45)
[2020-03-02] MEDS: CLOTRIMAZOLE 1% 15 GM TUBE TP SCH ×2 (09:46→17:44)
[2020-03-02] MEDS: LEVOTHYROXINE SODIUM 125 MCG TABLET PO SCH (09:46)
--- NOTE | 2020-03-02 10:21 | NUR ---
seen by Abel MAY and roxana swallow eval saying pt can tolerate food but pockets it at the same time.Able to tolerate thin liquids.Placed on mechanical soft diet fienly chopped.Will monitor pt tolerance.
[2020-03-02] MEDS ORDERED: NYST5ORA PO (13:27)
[2020-03-02] MEDS ORDERED: LEVO500T75 PO (13:27)
[2020-03-02] MEDS: LEVOFLOXACIN 500 MG /D5W 100ML 500 MG in PREMIX 1 EA IV SCH (13:30)
--- NOTE | 2020-03-02 13:30 | NUR ---
PT'S TONA MIDLINE SITE IS SWOLLEN AND HELD ALL IVF -DR BIANCHI AWARE.DR BIANCHI STATED TO CHANGE LEVAQUIN IV ATB TO PO DUE FOR 1300. NOTIFIED PHARMACIST,LEONARD AND MADE AWARE.
[2020-03-02] MEDS ORDERED: LEVOFLOXACIN (500MG) 500 MG TABLET PO SCH (14:00)
--- NOTE | 2020-03-02 16:00 | NUR ---
SPOKE TO MIDLINE NURSE, LOBITO PHILIP AND MADE AWARE OF THE PT'S SWOLLEN RT ARM IN THE MIDLINE SITE.LOBITO EXPLAINED THAT PT'S VEIN HAS ONLY ONE SMALL TINY VEIN ACCESSIBLE WHEN SHE WAS DOING THE MIDLINE INSERTION PROCEDURE. SHE STATED TO JUST ELEVATE THE RT ARM TO REDUCE THE SWELLING.PT IS FOR DISCHARGE BACK TO BOARD AND CARE WITH NO IV ATB ORDERED.
[2020-03-02 17:00] VITALS: BP 105/70
--- NOTE | 2020-03-02 18:30 | NUR ---
MS/RN CLOSING NOTES PATIENT IN BED RESTING ALERT AND OREINTED X 2. REMAINS TOLERATING ROOM AIR AT THIS TIME. RESPIRATIONS ARE EVEN AND UNLABORED. NO SOB NOTED. NO DISTRESS AND PT STATES NO PAIN AT THE MOMENT 0/10. IV ACCESS IN TONA MIDLINE D/C AND REMOVED, IV WAS INTACT UPON REMOVEAL. BED REMAINS LOW AND LOCKED, HOB ELEVATED IN SEMI FOWLERS, SIDE RAILS UP X2. CALL LIGHT WITHIN REACH. WILL ENDORSE TO NEXT SHIFT.
--- NOTE | 2020-03-02 18:55 | NUR ---
MS/RN NOTES DISCHARGE PATIENT TO [facility]. VITAL SIGNS WITHIN NORMAL LIMITS. PATIENT PICC LINE D/C. PATIENT WAS IN NO DISTRESS, NO SOB NOTED. ALL OF PATIENTS BELONGS WHERE TAKEN WITH HER. PATIENT D/C AT 1850HRS.
[2020-03-03] MEDS ORDERED: ERGOCALCIFEROL (VITAMIN D 2) 50,000 UNIT CAPSULE PO SCH (09:00)
== END 2020-03-02 18:50 | disposition home health service (06) | DRG 871 ==
LOC: ER 12:51 → TELE1 14:48 → MEDSG1 02-29 07:12 → MED 02-29 09:54
PROVIDERS: ADMIT Family Medicine; ATTEND Legal Medicine
PROC: 05HY33Z Insertion of Infusion Device into Upper Vein, Percutaneous Approach (ICD-10-PCS; principal; 2020-03-01)
DX: A41.9 Sepsis, unspecified organism (principal); E43 Unspecified severe protein-calorie malnutrition; G93.41 Metabolic encephalopathy; N17.0 Acute kidney failure with tubular necrosis; B37.0 Candidal stomatitis; N39.0 Urinary tract infection, site not specified; E87.2 Acidosis; I10 Essential (primary) hypertension; E78.5 Hyperlipidemia, unspecified; E03.9 Hypothyroidism, unspecified; Z88.1 Allergy status to other antibiotic agents; Z79.82 Long term (current) use of aspirin; Z88.2 Allergy status to sulfonamides; Z88.8 Allergy status to other drugs, medicaments and biological substances; Z79.899 Other long term (current) drug therapy; Z66 Do not resuscitate; M19.90 Unspecified osteoarthritis, unspecified site; F03.90 Unspecified dementia, unspecified severity, without behavioral disturbance, psychotic disturbance, mood disturbance, and anxiety; M32.9 Systemic lupus erythematosus, unspecified; E87.6 Hypokalemia; R73.9 Hyperglycemia, unspecified; D63.8 Anemia in other chronic diseases classified elsewhere; B96.5 Pseudomonas (aeruginosa) (mallei) (pseudomallei) as the cause of diseases classified elsewhere; K21.9 Gastro-esophageal reflux disease without esophagitis; G40.909 Epilepsy, unspecified, not intractable, without status epilepticus
CPT/HCPCS: 36415; 70450-TC; 71045-TC; 80048-TC; 80053-TC; 80061-TC; 80076-TC; 81000-TC; 82550-TC; 82553; 82570-TC; 82728-TC; 83605-TC; 83615-TC; 83735-TC; 83880; 83970; 84100-TC; 84155; 84155-TC; 84165; 84300-TC; 84484-TC; 85025-TC; 85378-TC; 85730-TC; 86140-TC; 87040-TC; 87081-TC; 87086-TC; 87186-TC; 92521; A4216; G0378; J0696; J1956; J3475; J3480; J3490; J7030; J7040; J7042; J7060; U0003-CS